=== PATIENT | female | born 1935 | race Caucasian/White ===

== ENCOUNTER 2018-05-04 22:14 | Inpatient (IN) | payer OTHER, MEDICARE ==
[~2018-05-04] VITALS: Ht 144.8 cm; Wt 68.9 kg
[~2018-05-04 22:14] MED LIST: ACET-1256 PO; ASPCH81X PO; ATOR-24 PO; ATV5 PO; CALC500C70 PO; CHOL100010 PO; CYM20 PO; ISOS60TA25 PO; LSX20 PO; METO50TA8 PO; NITR0.1S TL; OXYB5TAB PO; PANT40TA2 PO; POTA-639 PO
[2018-05-04] MEDS ORDERED: ALUMINUM/MAGNESIUM SUSP 30 ML UDC PO STA (22:45)
--- NOTE | 2018-05-04 22:46 | EMERGENCY ROOM VISIT NOTE ---
History Report prepared by Alexis: Jose Francisco Yoo Under the Supervision of: Dr. Moise Lepe First contact with patient: 22:33 Chief Complaint: CARDIAC ASSESSMENT Stated Complaint: ILLNESS, PAIN FROM ELBOW TO ARMPIT, SOB, NAUSEA History of Present Illness The patient is an 83 year old female who presents to the Emergency Room with complaints of pain in her left elbow and left shoulder that began at 0730, 3 hours ago. She states that the pain has resolved at this time. After the elbow and shoulder pain onset she became nauseous. The patient went to the restroom and had a diarrhea-like bowel movement. She denies any abdominal pain. She does have a history of coronary artery disease with stent placement. The last stent was placed in 2009. She did take Aspirin and nitroglycerin prior to arrival that resolved her symptoms. 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 Source of History: patient Onset: 3 hours ago Position: shoulder (left), elbow (left) Timing: resolved Modifying Factors (Relieving): other (Aspirin and nitr) Associated Symptoms: + nausea, + diarrhea Review of Systems See HPI for pertinent positives and negatives. A total of ten systems were reviewed and were otherwise negative. Past Medical & Surgical Medical Problems: (1) Anxiety (2) CAD (coronary artery disease) (3) CKD (chronic kidney disease), stage III (4) Dyslipidemia (5) GERD (gastroesophageal reflux disease) (6) History of iron deficiency anemia (7) History of non-toxic multinodal goiter (8) History of systolic heart failure (9) History of takotsubo cardiomyopathy (10) Hypertension (11) Osteoarthritis (12) Osteoporosis (13) Rotator cuff arthropathy Surgical Problems: (1) History of bladder suspension procedure (2) History of esophagogastroduodenoscopy (3) Hx of appendectomy (4) Hx of benign breast tumor removal (5) Hx of CABG (6) Hx of cataract surgery (7) Hx of laparoscopy Family History No significant family history Social History Smoking Status: Never Smoker Alcohol Use: none Marital Status: Housing Status: lives alone Occupation Status: retired Current/Historical Medications Scheduled Aspirin (Aspirin Chewable), 81 MG PO QAM Atorvastatin (Lipitor), 40 MG PO DAILY AFTERNOON Calcium Carbonate-Vitamin D (Oscal 500/200 D-3), 2 TABS PO DAILY Calcium/Vitamin D (Os-Eagle 500 Plus D), 1 TAB PO QAM Cholecalciferol (Vitamin D3), 2,000 UNITS PO DAILY Denosumab (Prolia), 60 MG SQ [id number] Duloxetine HCl (Cymbalta), 40 MG PO DAILY Furosemide (Lasix), 20 MG PO 3XWK Isosorbide Mononitrate Ext Rel (Imdur Ext Rel), 60 MG PO DAILY Metoprolol Succinate (Metoprolol Succinate ER), 25 MG PO DAILY Pantoprazole (Pantoprazole Sodium), 40 MG PO AMHS Scheduled PRN Acetaminophen (Tylenol), 500-1,000 MG PO QID PRN for Pain Nitroglycerin (Nitroglycerin Lingual), 1 DOSE TL DAILY PRN for Chest Pain Allergies Coded Allergies: Adhesives (Verified Allergy, Unknown, RED, CANT TOLERATE PAPER TAPE, 07/20) Nitroglycerin (Verified Allergy, Unknown, NITRO PATCH, ITHCY, 07/20/16) Physical Exam Vital Signs Date Time Temp Pulse Resp B/P (MAP) Pulse Ox O2 Delivery O2 Flow Rate FiO2 05/04/18 23:58 60 18 141/76 97 Room Air 05/04/18 23:24 57 05/04/18 22:57 94 Room Air 05/04/18 22:57 94 Room Air 05/04/18 22:40 94 Room Air 05/04/18 22:30 37.0 58 15 150/86 95 Room Air Physical Exam GENERAL: Awake, alert, well-appearing, in no distress HENT: Normocephalic, atraumatic. Oropharynx unremarkable. EYES: Normal conjunctiva. Sclera non-icteric. NECK: Supple. No nuchal rigidity. RESPIRATORY: Clear to auscultation. No wheezes. Normal respiratory effort. CARDIAC: Normal rate. Normal rhythm. Extremities warm and well perfused. GI: Soft, non-distended. No tenderness to palpation. No rebound or guarding. No masses. RECTAL: Deferred. MUSCULOSKELETAL: Atraumatic. Chest examination reveals no tenderness. LOWER EXTREMITIES: Calves are equal size bilaterally and non-tender. No edema NEURO: Normal sensorium. No sensory or motor deficits noted. SKIN: Warm and dry. No rash or jaundice noted. Medical Decision & Procedures ER Provider Diagnostic Interpretation: Radiology results as stated below per my review: Chest x-ray. Findings: A chest x-ray was performed and revealed no pneumothorax, effusion, infiltrate, pulmonary edema, free air under the diaphragm, or wide mediastinum. Laboratory Results 05/04/18 21:55 Red Blood Count 4.02, Mean Corpuscular Volume 90.0, Mean Corpuscular Hemoglobin 29.6, Mean Corpuscular Hemoglobin Concent 32.9, Mean Platelet Volume 9.7, Neutrophils (%) (Auto) 67.7, Lymphocytes (%) (Auto) 23.9, Monocytes (%) (Auto) 5.9, Eosinophils (%) (Auto) 2.0, Basophils (%) (Auto) 0.4, Neutrophils # (Auto) 5.08, Lymphocytes # (Auto) 1.79, Monocytes # (Auto) 0.44, Eosinophils # (Auto) 0.15, Basophils # (Auto) 0.03 05/04/18 21:55 Test 05/04/18 21:55 White Blood Count 7.50 K/uL (4.8-10.8) Red Blood Count 4.02 M/uL (4.2-5.4) Hemoglobin 11.9 g/dL (12.0-16.0) Hematocrit 36.2 % (37-47) Mean Corpuscular Volume 90.0 fL (80-100) Mean Corpuscular Hemoglobin 29.6 pg (25-34) Mean Corpuscular Hemoglobin Concent 32.9 g/dl (32-36) Platelet Count 219 K/uL (130-400) Mean Platelet Volume 9.7 fL (7.4-10.4) Neutrophils (%) (Auto) 67.7 % Lymphocytes (%) (Auto) 23.9 % Monocytes (%) (Auto) 5.9 % Eosinophils (%) (Auto) 2.0 % Basophils (%) (Auto) 0.4 % Neutrophils # (Auto) 5.08 K/uL (1.4-6.5) Lymphocytes # (Auto) 1.79 K/uL (1.2-3.4) Monocytes # (Auto) 0.44 K/uL (0.11-0.59) Eosinophils # (Auto) 0.15 K/uL (0-0.5) Basophils # (Auto) 0.03 K/uL (0-0.2) RDW Standard Deviation 42.0 fL (36.4-46.3) RDW Coefficient of Variation 12.8 % (11.5-14.5) Immature Granulocyte % (Auto) 0.1 % Immature Granulocyte # (Auto) 0.01 K/uL (0.00-0.02) Prothrombin Time 9.6 SECONDS (9.0-12.0) Prothromb Time International Ratio 0.9 (0.9-1.1) Activated Partial Thromboplast Time 24.8 SECONDS (21.0-31.0) Partial Thromboplastin Ratio 1.0 Anion Gap 8.0 mmol/L (3-11) Est Creatinine Clear Calc Drug Dose 31.3 ml/min Estimated GFR () 54.0 Estimated GFR (Non- 46.6 BUN/Creatinine Ratio 22.9 (10-20) Calcium Level 9.0 mg/dl (8.5-10.1) Total Bilirubin 0.3 mg/dl (0.2-1) Direct Bilirubin 0.1 mg/dl (0-0.2) Aspartate Amino Transf (AST/SGOT) 20 U/L (15-37) Alanine Aminotransferase (ALT/SGPT) 18 U/L (12-78) Alkaline Phosphatase 89 U/L (45-117) Troponin I < 0.015 ng/ml (0-0.045) Total Protein 7.4 gm/dl (6.4-8.2) Albumin 3.7 gm/dl (3.4-5.0) Lipase 206 U/L (73-393) Laboratory results reviewed by me Medications Administered Medications (Trade) Dose Ordered Sig/Emerson Route Start Time Stop Time Status Last Admin Dose Admin Al Hydroxide/Mg Hydroxide (Maalox Susp) 30 ml NOW STAT PO 05/04/18 22:45 05/04/18 22:46 DC 05/04/18 23:10 30 ML Famotidine (Pepcid 20mg Iv Push) 20 mg ONE STAT IV 05/05/18 00:16 05/05/18 00:17 DC 05/05/18 00:26 20 MG Al Hydroxide/Mg Hydroxide (Maalox Susp) 15 ml NOW STAT PO 05/05/18 00:16 05/05/18 00:17 DC 05/05/18 00:26 15 ML ECG Per My Interpretation Indication: back/shoulder pain Rate (beats per minute): 60 Rhythm: sinus rhythm Findings: 1st degree AV block, PVC (occassionaly), other (No ADEBAYO, ) Comparison ECG Date: 07/21/2016 Change: no significant change ED Course 2241: The patient was evaluated in room C3. A complete history and physical exam was performed. 2244: Ordered Maalox Susp 30 mL PO. 2341: I discussed the case with Dr. Jeanette Hale Hospitalist. He will evaluate the patient for further treatment/admission. Patient aware of plan of care. 2359: Patient requesting additional Maalox and given Maalox and Pepcid. States she is intermittently having some shooting pain in her left arm and chest but again not currently during my reevaluation. Medical Decision Differential diagnosis: Etiologies such as cardiac ischemia, aortic dissection, pulmonary embolism, pneumonia, pneumothorax, musculoskeletal, infections, pericarditis, myocarditis , esophageal rupture, gastrointestinal, as well as others were entertained. Patient presents complaining of left-sided arm pain similar to prior cardiac pain she has experienced in the past with extensive cardiac history earlier this evening. Had an episode of abdominal discomfort and diarrhea as well. Abdomen is benign.Took additional aspirin and nitroglycerin which improved the pain. She is now pain-free. Denies shortness of breath or chest pain at this time. No trauma. No arm pain at this time. was recently evaluated by her primary doctor and cardiology who increased her isosorbide due to concerns about angina. Doubt PE or dissection. Concern regarding this increased resting angina. Already received aspirin today. Given Maalox and Pepcid given some GI discomfort from this and has a history of GI disturbances that may be related. Multiple prior cardiac stents and operations. At this time cardiac EKG and troponin are negative. She is continued to have some intermittent stuttering symptoms of left sided axillary and arm pain. Given the intermittent nature I did not give additional nitroglycerin. There is also a trace left effusion notable on the x-ray without gross evidence of pneumonia, pneumothorax, or pulmonary edema. Unsure of the etiology of this. I feel that admission is warranted for serial troponins and further cardiac workup. Medication Reconcilliation Current Medication List: was personally reviewed by me Blood Pressure Screening Patient's blood pressure: Elevated blood pressure Referred to Hospitalist Consults Time Called: [phone] Consulting Physician: Dr. Jeanette Hale Hospitalist Returned Call: [phone] I discussed the case with Dr. Jeanette Hale Hospitaljosh. He will evaluate the patient for further treatment. Impression Primary Impression: Acute angina Additional Impression: Chest pain Scribe Attestation The scribe's documentation has been prepared under my direction and personally reviewed by me in its entirety. I confirm that the note above accurately reflects all work, treatment, procedures, and medical decision making performed by me. Departure Information Dispostion Being Evaluated By Hospitalist Referrals Camacho Sauer (PCP) Patient Instructions My [facility] Problem Qualifiers Additional Impression: Chest pain Chest pain type: unspecified Qualified Codes: R07.9 - Chest pain, unspecified
[2018-05-04 22:53] LABS: HEMATOCRIT 36.2 % (37-47); HEMOGLOBIN 11.9 g/dL (12.0-16.0); MEAN CORPUSCULAR HEMOGLOBIN 29.6 pg (25-34); MEAN CORPUSCULAR HGB CONC 32.9 g/dl (32-36); MEAN PLATELET VOLUME 9.7 fL (7.4-10.4); PLATELET COUNT 219 K/uL (130-400); RED CELL DISTRIBUTION WIDTH CV 12.8 % (11.5-14.5)
[2018-05-04 23:05] LABS: INR 0.9 (0.9-1.1); PTT PATIENT 24.8 SECONDS (21.0-31.0)
[2018-05-04 23:16] LABS: ALBUMIN 3.7 gm/dl (3.4-5.0); ALKALINE PHOSPHATASE 89 U/L (45-117); ALT/SGPT 18 U/L (12-78); AST/SGOT 20 U/L (15-37); BLOOD UREA NITROGEN 25 mg/dl (7-18); CARBON DIOXIDE 26 mmol/L (21-32); CREATININE 1.09 mg/dl (0.60-1.20); GLUCOSE 106 mg/dl (70-99); LIPASE 206 U/L (73-393); POTASSIUM 3.8 mmol/L (3.5-5.1); SODIUM 141 mmol/L (136-145); TOTAL PROTEIN 7.4 gm/dl (6.4-8.2)
[2018-05-04 23:18] LABS: BASO % 0.4 %; BASO ABS # 0.03 K/uL (0-0.2); EOS ABS # 0.15 K/uL (0-0.5); IG# 0.01 K/uL (0.00-0.02); LYMPH % 23.9 %; LYMPH ABS # 1.79 K/uL (1.2-3.4); MONO % 5.9 %; MONO ABS # 0.44 K/uL (0.11-0.59); NEUT % 67.7 %; NEUT ABS # 5.08 K/uL (1.4-6.5)
[2018-05-04] MEDS ORDERED: TPRSR/50 PO (23:52)
[2018-05-04] MEDS ORDERED: FURO-85 PO (23:54)
[2018-05-04] MEDS ORDERED: DULO-24 PO (23:57)
[2018-05-05] MEDS ORDERED: CHOL20007 PO
[2018-05-05] MEDS ORDERED: ALUMINUM/MAGNESIUM SUSP 30 ML UDC PO STA (00:16)
[2018-05-05] MEDS ORDERED: FAMOTIDINE 20MG/5ML IV PUSH IV STA (00:16)
[2018-05-05] MEDS ORDERED: CALC200T PO (00:17)
[2018-05-05] MEDS ORDERED: DENO60SO SQ (00:20)
[2018-05-05] MEDS ORDERED: LORAZEPAM 0.5 MG TAB PO PRN (01:00)
[2018-05-05] MEDS ORDERED: MoRPHine SULFATE 2 MG/ML CARP IV PRN (01:00)
[2018-05-05] MEDS ORDERED: ACETAMINOPHEN 500 MG TAB PO PRN (01:00)
[2018-05-05] MEDS ORDERED: POLYETHYLENE (MIRALAX) 17 GM PACK PO PRN (01:00)
[2018-05-05] MEDS ORDERED: NITROGLYCERIN 0.4 MG SL PER TAB CHARGE SL PRN (01:00)
[2018-05-05] MEDS ORDERED: ALUMINUM/MAGNESIUM/SIMETH (MAALOX MAX) 30 ML UDC PO PRN (01:00)
[2018-05-05] MEDS ORDERED: LORA-741 PO (01:00)
[2018-05-05] MEDS ORDERED: ACETAMINOPHEN 325 MG TAB PO PRN (01:00)
[2018-05-05] MEDS ORDERED: NITROGLYCERIN SL SPR 4.9 GM BTL SL PRN (01:00)
[2018-05-05] MEDS ORDERED: ISOS60TA25 PO (01:00)
[2018-05-05] MEDS ORDERED: ONDANSETRON INJ 2 MG/ML 2 ML VIAL IV PRN (01:00)
[2018-05-05 01:50] VITALS: BP 150/71; PULSE 54; TEMP 36.7; O2SAT 94; Ht 144.8 cm; Wt 68.9 kg
--- NOTE | 2018-05-05 02:20 | HISTORY & PHYSICAL EXAMINATION ---
DATE OF ADMISSION: 05/04/2018 CHIEF COMPLAINT: Left arm pain. HISTORY OF PRESENT ILLNESS: [age] female with past medical history significant for CAD, status post CABG, hypertension, osteoarthritis, chronic kidney disease, general anxiety, history of nontoxic multinodular goiter, hyperlipidemia, history of esophageal spasm, presents with ongoing left arm pain radiating to the armpit, going on for some time. She saw cardiology on April 26, 2018 and at that time, Imdur was increased from 60-120 mg and plan was to reassessed in about a month. The patient states that increasing dose of Imdur helped for a week then again she started having pain in the left arm, the same pain, but she used to have night sweats before. The night sweats has been improved since the tablet dose was increased, but today she has episode of diarrhea and pain was about 8/10 in severity, but right now that pain is gone. The pain comes and goes on its own. She has some shortness of breath on exertion. Denies any headache. No blurred visions. No earache, no runny nose, no sore throat or difficulty swallowing. have occasional dry cough. No fever, no chills, no nausea, no abdominal pain. Normal bowel and bladder movements. Appetite is okay. No swelling in the legs. Currently resting comfortably and hemodynamically stable. ALLERGIES: ADHESIVES AND NITROGLYCERIN. PAST MEDICAL HISTORY: As mentioned above. PAST SURGICAL HISTORY: CABG, cardiac catheterization, status post stents, EGD, cataract surgeries and fibroids removed and bilateral breast surgery, bilateral vaginal prolapse surgery, bladder suspension surgery, laparoscopy for infertility. MEDICATIONS: Currently patient is on Imdur ER 120 mg p.o. daily, Protonix 40 mg p.o. b.i.d., Lipitor 40 mg p.o. daily, nitroglycerine 0.4mg spray sublingual p.r.n., duloxetine 40 mg p.o. daily, Lasix 20 mg on Wednesday, Wednesday and Wednesday, Toprol-XL 25 mg p.o. daily, vitamin D 1000 units p.o. daily, Ativan 0.5 mg p.o. b.i.d. p.r.n., Tylenol extra strength as needed, aspirin 81 mg p.o. daily, Os-Eagle 500+200 two tablets daily. FAMILY HISTORY: Significant for brother has AAA, father has arthritis, heart disorder and stroke. Mother had breast cancer. SOCIAL HISTORY: No smoking history. No alcohol history. No drug history. REVIEW OF SYMPTOMS: As per HPI. Rest of review of symptoms negative. PHYSICAL EXAMINATION: GENERAL: The patient is old and frail, not in distress. VITAL SIGNS: Temperature 37, pulse 60, respiratory rate 18, blood pressure 141/76, oxygen 97% room air. HEENT: No pallor, no icterus. Pupils equal, round, and react to light. NECK: No JVD, no neck masses, no carotid bruit. CARDIOVASCULAR: S1, S2 heard, regular rate and rhythm, no murmur, no gallop. RESPIRATORY SYSTEM: Clear to auscultation bilaterally. No wheezing, no crackles. ABDOMEN: Soft, bowel sounds present. Nontender. No distention. CENTRAL NERVOUS SYSTEM: Cranial nerves II-XII grossly intact. Nonfocal. EXTREMITIES: No edema, no erythema. LABORATORIES: WBC 7.5, hemoglobin 11.9, hematocrit 36.2, platelets 219. Sodium 141, potassium 3.8, chloride 107, bicarbonate 26, BUN 25, creatinine 1.09, serum glucose 106, calcium 9, total bilirubin 0.3, direct bilirubin 0.1, AST 20, ALT 18, alkaline phosphatase 89. Troponin I less than 0.015. Lipase 206. PT 9.6, INR was 0.9, APTT 24.8. Chest x-ray: No acute findings. EKG: Sinus rhythm with first degree AV block with PVC's at the rate of 60. q waves anterolaterally. No acute ST changes seen. ASSESSMENT AND PLAN: This is an 83-year-old female who presents with left arm pain. 1. Left arm pain, possible angina going on for for some time. Imdur was recently increased from 60-120 mg which helped for a week, but again her symptoms came back and comes on and off. Currently, EKG, no acute changes and the troponin is negative. We will admit to tele floor. Serial cardiac enzymes and on the repeat EKG. Cardiology contemplating cardiac cath if there is no improvement with increasing Imdur, which will be done at [facility] so we will consult cardiology for further recommendations. Monitor on tele floor. 2. History of coronary artery disease status post coronary artery bypass grafting, status post stents. Continue home medications of Imdur, aspirin, statin, and Toprol-XL. We will monitor. 3. Hyperlipidemia. Continue statin. 4. Depression. Continue Cymbalta. 5. Hypertension. Continue Toprol-XL and monitor the blood pressure. 6 chronic kidney disease stage III, creatinine is 1.09. Will follow the labs. 7. Deep venous thrombosis prophylaxis, sequential compression devices. 8. Disposition: Admit to tele floor. Await cardiology recommendations. Level 1 full code. MTDD
[2018-05-05 06:03] LABS: CKMB 1.7 ng/ml (0.5-3.6)
[2018-05-05 07:09] VITALS: BP 139/71; PULSE 60; TEMP 36.9; O2SAT 92
[2018-05-05] MEDS ORDERED: CHOLECALCIFEROL 1000 INTER.UNIT TAB PO SCH (09:00)
[2018-05-05] MEDS ORDERED: PANTOprazole SOD 40 MG TAB PO SCH (09:00)
[2018-05-05] MEDS ORDERED: DULOXETINE HCL 20 MG CAP PO SCH (09:00)
[2018-05-05] MEDS ORDERED: ASPIRIN 81 MG ECTAB PO SCH (09:00)
[2018-05-05] MEDS ORDERED: CALCIUM 600MG + VIT D 400 IU TAB PO SCH (09:00)
[2018-05-05] MEDS ORDERED: METOPROLOL SUCC 25MG EXT REL TAB PO SCH (09:00)
[2018-05-05] MEDS ORDERED: ISOSORBIDE MONONITRATE 60 MG TABCR PO SCH (09:00)
--- NOTE | 2018-05-05 09:03 | DIAGNOSTIC IMAGING REPORT ---
CHEST ONE VIEW PORTABLE HISTORY: 83 years-old Female CHEST PAIN acute atypical chest pain COMPARISON: Chest radiograph and CTA chest 07/20/2016 TECHNIQUE: Portable AP view of the chest FINDINGS: Prior median sternotomy. Cardiac silhouette is again enlarged. Surgical clips project over the left mediastinum. No pneumothorax, pleural effusion, lobar airspace consolidation or overt pulmonary edema. Linear subsegmental opacities about the lateral left midlung suggest atelectasis or scarring and are unchanged. There are degenerative changes of the shoulders and spine. Small hiatal hernia. IMPRESSION: No acute process. The above report was generated using voice recognition software. It may contain grammatical, syntax or spelling errors. Electronically signed by: Navneet Diaz M.D. 05/05/2018 6:34 AM Dictated Date/Time: 05/05/2018 6:33 AM
--- NOTE | 2018-05-05 09:29 | Cardiology Consultation ---
Cardiology Consultation Date of Consultation: May 05, 2018 History of Present Illness Patient is a 83 year old female seen in cardiology consultation per the request of Dr. Reid for the complaint of recurrent pain in her left arm just above her elbow. The patient is a long-standing history of coronary heart disease most recently has typically followed with Jet Maria PA-C of our practice however I had seen her on 04/26/18 as an acute visit at [facility]. That day she had presented to see general internal medicine and she described complaints of on and off again heavy perspiration at night and a waxing and waning left arm discomfort that have been present for a few weeks but was worse for the preceding few days. She described that the discomfort had been most significant at her recent birthday gathering as both the patient's daughter and the patient's birthdays were celebrated. The patient has had some degree of psychosocial stressors I am told by her daughter that the patient's sister recently and they attended a within the last few weeks. When I initially saw her last week. Her EKG had revealed sinus bradycardia with first-degree AV block with Q waves noted in the inferior leads unchanged compared to a prior 2016. Although she complained of waxing and waning left arm pain she looked remarkably comfortable. I recommended increasing her isosorbide mononitrate from 60 mg daily to 120 mg daily. For the last 10 days she felt that the medication had helped at first but yesterday her left arm pain returned and she also had an episode of nausea and diarrhea. She also received report that her chest x-ray performed at the time of her visit last week with general internal medicine revealed an abnormality in the right lung. Per review of the official radiology report, blunting of the right costophrenic angle along with mild interstitial prominence of the right lateral lower lung was present and felt to represent local infectious versus inflammatory state. This of course does not correlate with the patient's symptoms and she has no fever, no pleuritic pain, and no cough. Yesterday when she had the return of the discomfort this prompted her to come back to the emergency room overnight last night. EKG performed on arrival revealed detailed in no acute changes with a chronic inferior infarct pattern, and her troponin has been negative 2 thus far. The patient is comfortable in bed. Telemetry reveals stable sinus rhythm sinus bradycardia. Past Medical/Surgical History Problem List: Medical Problems: (1) Anxiety (2) CAD (coronary artery disease) (3) CKD (chronic kidney disease), stage III (4) Dyslipidemia (5) GERD (gastroesophageal reflux disease) (6) History of iron deficiency anemia (7) History of non-toxic multinodal goiter (8) History of systolic heart failure (9) History of takotsubo cardiomyopathy (10) Hypertension (11) Left arm pain (12) Osteoarthritis (13) Osteoporosis (14) Rotator cuff arthropathy Surgical Problems: (1) History of bladder suspension procedure (2) History of esophagogastroduodenoscopy (3) Hx of appendectomy (4) Hx of benign breast tumor removal (5) Hx of CABG (6) Hx of cataract surgery (7) Hx of laparoscopy History Past Medical History: 1. ASCVD status post PCI x3 in 2001, 3-vessel bypass surgery in 2002 with AMADO to LAD, SVG to PDA, vein graft to OM, and diagonal branch. 2. Catheterization in May 2010 in the setting of apical ballooning induced cardiogenic shock showed stable disease.~ 3. Worsening anginal symptoms led to abnormal lexiscan nuclear stress test in October 2011 and repeat cardiac catheterization at [facility] in [place] demonstrated severe [place] 3-vessel CAD with patent AMADO to LAD, SVG to PDA, SVG to diagonal branch jumping to posterolateral branch.~ 4. Last stress testing occurred in March 2015 at [facility], dobutamine stress testing negative for pharmacologically induced myocardial ischemia with resting echo demonstrating preserved left ventricular systolic function. 5. Hypertension 6. Dyslipidemia 7. GERD. History of esophagitis. History of large hiatal hernia with a few nery ulcers. Schatzki ring. Followed by GI. Past Surgical History: 1. CABG 3 as outlined above in 2002 2. Multiple cardiac catheterizations as outlined above including 2001, 2002, 2011 3. Bilateral cataract extractions 4. Remote appendectomy 5. Multiple EGD studies most recent of which took place in 2016 with findings of Schatzki's ring Social History: The patient is a lifelong non-smoker. He is and lives independently with close family support. Her daughter, David is a nurse at [employer]. Family History: Father with apparent history of heart disease, details unknown as well as stroke. Brother with history of heart disease and myocardial infarction at the age of 70 as well as pacemaker. Review Of Systems 10 point review of systems reviewed and is negative with exception of that outlined above Allergies Coded Allergies: Adhesives (Verified Allergy, Unknown, RED, CANT TOLERATE PAPER TAPE, 07/20) Nitroglycerin (Verified Allergy, Unknown, NITRO PATCH, ITHCY, 07/20/16) Medications Reported Home Medications Medications Dose Route/Sig Max Daily Dose Days Date Category Dose Instructions Ativan (Lorazepam) 0.5 Mg Tab 0.5 Mg PO BID PRN 05/05/18 Rx Imdur Ext Rel (Isosorbide Mononitrate) 60 Mg Ertab 120 Mg PO DAILY 05/05/18 Rx Vitamin D3 (Cholecalciferol) 2,000 Unit Tab 2,000 Units PO DAILY 05/05/18 Reported Cymbalta (Duloxetine HCl) 20 Mg Cap 40 Mg PO DAILY 05/04/18 Reported Lasix (Furosemide) 20 Mg Tab 20 Mg PO 3XWK 05/04/18 Reported TAKE ONE TABLET EVERY WEDNESDAY/WEDNESDAY/WEDNESDAY. Metoprolol Succinate ER (Metoprolol Succinate) 50 Mg Tabcr 25 Mg PO DAILY 05/04/18 Reported 1/2 TABLET DOSE DAILY Pantoprazole Sodium (Pantoprazole) 40 Mg Tab 40 Mg PO AMHS 07/20/16 Reported Aspirin Chewable (Aspirin) 81 Mg Chew 81 Mg PO QAM 12/11/15 Reported [place] 500 Plus D (Calcium/Vitamin D) Tab 1 Tab PO QAM 12/11/15 Reported Nitroglycerin Lingual (Nitroglycerin) 0.4 Mg/Huslia Spr 1 Dose TL DAILY PRN 12/11/15 Reported Lipitor (Atorvastatin Calcium) 40 Mg Tab 40 Mg PO DAILY AFTERNOON 12/03/15 Reported Tylenol (Acetaminophen) 500 Mg Tab 500-1,000 Mg PO QID PRN 01/05/14 Reported Physical Exam Vital Signs (Last 8hrs): Last 8 Hrs Date Time Temp Pulse Resp B/P (MAP) Pulse Ox O2 Delivery O2 Flow Rate FiO2 05/05/18 07:09 36.9 60 18 139/71 (93) 92 Room Air 05/05/18 01:50 36.7 54 18 150/71 94 Room Air 05/05/18 01:24 56 18 123/56 98 Room Air General Appearance: Alert and Oriented x3. NAD. Head: Normocephalic Atraumatic. Eyes: PERRLA, EOMI, conjunctiva and sclera clear Neck: Supple. No carotid bruits noted. No JVD. No HJD. Respiratory: Breath sounds clear to auscultation bilaterally. No w/r/r. Cardiovascular: Reg rate and rhythm. S1 and S2 noted. No murmurs, rubs, gallops. PMI non displace. Abdomen: Normal bowel sounds, soft nontender. no abdominal bruits. Extremities: No edema, no clubbing or cyanosis. distal pulses 2/4 bilaterally. Neuro: No focal deficits. Psychiatric: Normal affect. Data Last 24 Hours Test 05/04/18 21:55 05/05/18 05:14 White Blood Count 7.50 K/uL Red Blood Count 4.02 M/uL Hemoglobin 11.9 g/dL Hematocrit 36.2 % Mean Corpuscular Volume 90.0 fL Mean Corpuscular Hemoglobin 29.6 pg Mean Corpuscular Hemoglobin Concent 32.9 g/dl Platelet Count 219 K/uL Mean Platelet Volume 9.7 fL Neutrophils (%) (Auto) 67.7 % Lymphocytes (%) (Auto) 23.9 % Monocytes (%) (Auto) 5.9 % Eosinophils (%) (Auto) 2.0 % Basophils (%) (Auto) 0.4 % Neutrophils # (Auto) 5.08 K/uL Lymphocytes # (Auto) 1.79 K/uL Monocytes # (Auto) 0.44 K/uL Eosinophils # (Auto) 0.15 K/uL Basophils # (Auto) 0.03 K/uL RDW Standard Deviation 42.0 fL RDW Coefficient of Variation 12.8 % Immature Granulocyte % (Auto) 0.1 % Immature Granulocyte # (Auto) 0.01 K/uL Prothrombin Time 9.6 SECONDS Prothromb Time International Ratio 0.9 Activated Partial Thromboplast Time 24.8 SECONDS Partial Thromboplastin Ratio 1.0 Sodium Level 141 mmol/L Potassium Level 3.8 mmol/L Chloride Level 107 mmol/L Carbon Dioxide Level 26 mmol/L Anion Gap 8.0 mmol/L Blood Urea Nitrogen 25 mg/dl Creatinine 1.09 mg/dl Est Creatinine Clear Calc Drug Dose 31.3 ml/min Estimated GFR () 54.0 Estimated GFR (Non- 46.6 BUN/Creatinine Ratio 22.9 Random Glucose 106 mg/dl Calcium Level 9.0 mg/dl Total Bilirubin 0.3 mg/dl Direct Bilirubin 0.1 mg/dl Aspartate Amino Transf (AST/SGOT) 20 U/L Alanine Aminotransferase (ALT/SGPT) 18 U/L Alkaline Phosphatase 89 U/L Troponin I < 0.015 ng/ml < 0.015 ng/ml Total Protein 7.4 gm/dl Albumin 3.7 gm/dl Lipase 206 U/L Total Creatine Kinase 76 U/L Creatine Kinase MB 1.7 ng/ml Creatine Kinase MB Ratio 2.2 EKG performed on arrival 05/04/18 at 2221 revealed sinus rhythm with first- degree AV block, and PVCs. Inferior infarction pattern noted with Q waves in leads III and aVF mild J-point elevation noted in lead aVF, unchanged compared to outpatient EKG performed 04/26/18 and again in 2017. Assessment & Plan Impression: 83-year-old female 1. Patient presents with recurrent waxing and waning left arm discomfort just proximal to her elbow. Symptoms have relieved at present without specific intervention. She is also previously complained of on and off again heavy perspiration at night which seems to have improved over the last 10 days compared to when she was seen as an outpatient on 04/26/18. 2. Remote myocardial infarction, 2001 with PCI at that time, followed by CABG times 12/2002, stable findings at time of cardiac catheterization performed for recurrent symptoms in 2011 Discussion/recommendations: Although the patient's recent outpatient chest x-ray raises the question for an inflammatory process at the right base, she does not have any clinical symptoms correlate with this. Her symptoms are somewhat atypical for angina. EKG is stable, and cardiac enzymes have been negative 2. The patient however is very concerned that her current symptoms mimic his symptoms that she felt for a month before her prior myocardial infarction many years ago. I discussed treatment options with her. Last week, her isosorbide mononitrate dose was increased from 60 mg to 120 mg, but her symptoms have reoccurred. We discussed the option of proceeding with stress testing for further risk stratification, however even if her stress test was normal, with recurrent symptoms, I do not think this would offer much reassurance to the patient, her family, or her providers. At this time, I recommend transfer to tertiary care center, [facility], for complex cardiac catheterization with need for high risk percutaneous coronary or bypass intervention if necessary. I think her catheterization is best performed at the tertiary center given the complex nature of her coronary anatomy as outlined above with bypass grafts that are 15 years old. The patient and her daughter, David were agreeable with this. Case was discussed with Dr. Castle manager front for clinical cardiology at [facility] who accepts the patient in transfer. We will transfer arrangements are being made, I am going to proceed with a resting echocardiogram for reassessment. If we cannot complete it before she leaves, this can likely be performed at [facility] if determined to be necessary.
[2018-05-05 10:04] VITALS: BP 139/71; PULSE 60; TEMP 36.9; O2SAT 92
--- NOTE | 2018-05-05 10:14 | Progress Note ---
Internal Med Progress Note Date of Service: May 05, 2018. Provider Documentation: SUBJECTIVE: Patient denies acute chest pain or acute arm pain. Patient breathing on room air. Denies shortness of breath at rest OBJECTIVE: Exam: General- no acute distress Eyes- EOMI Neck- trachea midline, no JVD Lungs- CTABL Heart- regular rate Abdomen- soft, nontender, positive bowel sounds Extremities- no edema Neuro- awake and alert ASSESSMENT & PLAN: This is an 83-year-old female who presents with left arm pain. - History of coronary artery disease status post coronary artery bypass grafting , status post stents -Left arm pain from angina vs ischemic coronary artery disease -initial negative troponin -Patient evaluated by [facility] cardiology service Dr. Olson and he recommended patient to be transferred to tertiary care center, [facility], for complex cardiac catheterization with need for high risk percutaneous coronary or bypass intervention if necessary. He discussed with Dr. Castle cost controller for clinical cardiology at [facility] [place] the patient in transfer. -on medications of Imdur, aspirin, statin, and Toprol-XL, statin. Depression history on Cymbalta. Vital Signs: Date Time Temp Pulse Resp B/P (MAP) Pulse Ox O2 Delivery O2 Flow Rate FiO2 05/05/18 10:04 36.9 60 18 92 Room Air 05/05/18 08:00 Room Air 05/05/18 07:09 36.9 60 18 139/71 (93) 92 Room Air 05/05/18 01:50 36.7 54 18 150/71 94 Room Air 05/05/18 01:24 56 18 123/56 98 Room Air 05/04/18 23:58 60 18 141/76 97 Room Air 05/04/18 23:24 57 05/04/18 22:57 94 Room Air 05/04/18 22:57 94 Room Air 05/04/18 22:40 94 Room Air 05/04/18 22:30 37.0 58 15 150/86 95 Room Air Lab Results: Results Past 24 Hours Test 05/04/18 21:55 05/05/18 05:14 Range/Units White Blood Count 7.50 4.8-10.8 K/uL Red Blood Count 4.02 4.2-5.4 M/uL Hemoglobin 11.9 12.0-16.0 g/dL Hematocrit 36.2 37-47 % Mean Corpuscular Volume 90.0 80-100 fL Mean Corpuscular Hemoglobin 29.6 25-34 pg Mean Corpuscular Hemoglobin Concent 32.9 32-36 g/dl Platelet Count 219 130-400 K/uL Mean Platelet Volume 9.7 7.4-10.4 fL Neutrophils (%) (Auto) 67.7 % Lymphocytes (%) (Auto) 23.9 % Monocytes (%) (Auto) 5.9 % Eosinophils (%) (Auto) 2.0 % Basophils (%) (Auto) 0.4 % Neutrophils # (Auto) 5.08 1.4-6.5 K/uL Lymphocytes # (Auto) 1.79 1.2-3.4 K/uL Monocytes # (Auto) 0.44 0.11-0.59 K/uL Eosinophils # (Auto) 0.15 0-0.5 K/uL Basophils # (Auto) 0.03 0-0.2 K/uL RDW Standard Deviation 42.0 36.4-46.3 fL RDW Coefficient of Variation 12.8 11.5-14.5 % Immature Granulocyte % (Auto) 0.1 % Immature Granulocyte # (Auto) 0.01 0.00-0.02 K/uL Prothrombin Time 9.6 9.0-12.0 SECONDS Prothromb Time International Ratio 0.9 0.9-1.1 Activated Partial Thromboplast Time 24.8 21.0-31.0 SECONDS Partial Thromboplastin Ratio 1.0 Sodium Level 141 136-145 mmol/L Potassium Level 3.8 3.5-5.1 mmol/L Chloride Level 107 98-107 mmol/L Carbon Dioxide Level 26 21-32 mmol/L Anion Gap 8.0 3-11 mmol/L Blood Urea Nitrogen 25 7-18 mg/dl Creatinine 1.09 0.60-1.20 mg/dl Est Creatinine Clear Calc Drug Dose 31.3 ml/min Estimated GFR () 54.0 Estimated GFR (Non- 46.6 BUN/Creatinine Ratio 22.9 10-20 Random Glucose 106 70-99 mg/dl Calcium Level 9.0 8.5-10.1 mg/dl Total Bilirubin 0.3 0.2-1 mg/dl Direct Bilirubin 0.1 0-0.2 mg/dl Aspartate Amino Transf (AST/SGOT) 20 15-37 U/L Alanine Aminotransferase (ALT/SGPT) 18 12-78 U/L Alkaline Phosphatase 89 45-117 U/L Troponin I < 0.015 < 0.015 0-0.045 ng/ml Total Protein 7.4 6.4-8.2 gm/dl Albumin 3.7 3.4-5.0 gm/dl Lipase 206 73-393 U/L Total Creatine Kinase 76 26-192 U/L Creatine Kinase MB 1.7 0.5-3.6 ng/ml Creatine Kinase MB Ratio 2.2 0-3.0
--- NOTE | 2018-05-05 10:20 | Discharge Instructions ---
Discharge Instructions Date of Service May 05, 2018. Admission Reason for Admission: Left Arm Pain Discharge Discharge Diagnosis / Problem: Left arm pain from angina vs ischemic coronary artery disease Discharge Goals Goal(s): Improve disease control Activity Recommendations Activity Limitations: as noted below . Instructions / Follow-Up Instructions / Follow-Up This is an 83-year-old female who presents with left arm pain. - History of coronary artery disease status post coronary artery bypass grafting , status post stents -Left arm pain from angina vs ischemic coronary artery disease -initial negative troponin -Patient evaluated by [facility] cardiology service Dr. Olson and he recommended patient to be transferred to tertiary care center, [facility], for complex cardiac catheterization with need for high risk percutaneous coronary or bypass intervention if necessary. He discussed with Dr. Castle insemination worker for clinical cardiology at [facility] who accepts the patient in transfer. -on medications of Imdur, aspirin, statin, and Toprol-XL, statin. Depression history on Cymbalta. Current Hospital Diet Patient's current hospital diet: Regular Diet Discharge Diet Recommended Diet: Regular Diet Pending Studies Studies pending at discharge: no Laboratory Results 05/04/18 21:55 Red Blood Count 4.02, Mean Corpuscular Volume 90.0, Mean Corpuscular Hemoglobin 29.6, Mean Corpuscular Hemoglobin Concent 32.9, Mean Platelet Volume 9.7, Neutrophils (%) (Auto) 67.7, Lymphocytes (%) (Auto) 23.9, Monocytes (%) (Auto) 5.9, Eosinophils (%) (Auto) 2.0, Basophils (%) (Auto) 0.4, Neutrophils # (Auto) 5.08, Lymphocytes # (Auto) 1.79, Monocytes # (Auto) 0.44, Eosinophils # (Auto) 0.15, Basophils # (Auto) 0.03 05/04/18 21:55 Test 05/04/18 21:55 05/05/18 05:14 White Blood Count 7.50 K/uL (4.8-10.8) Red Blood Count 4.02 M/uL (4.2-5.4) Hemoglobin 11.9 g/dL (12.0-16.0) Hematocrit 36.2 % (37-47) Mean Corpuscular Volume 90.0 fL (80-100) Mean Corpuscular Hemoglobin 29.6 pg (25-34) Mean Corpuscular Hemoglobin Concent 32.9 g/dl (32-36) Platelet Count 219 K/uL (130-400) Mean Platelet Volume 9.7 fL (7.4-10.4) Neutrophils (%) (Auto) 67.7 % Lymphocytes (%) (Auto) 23.9 % Monocytes (%) (Auto) 5.9 % Eosinophils (%) (Auto) 2.0 % Basophils (%) (Auto) 0.4 % Neutrophils # (Auto) 5.08 K/uL (1.4-6.5) Lymphocytes # (Auto) 1.79 K/uL (1.2-3.4) Monocytes # (Auto) 0.44 K/uL (0.11-0.59) Eosinophils # (Auto) 0.15 K/uL (0-0.5) Basophils # (Auto) 0.03 K/uL (0-0.2) RDW Standard Deviation 42.0 fL (36.4-46.3) RDW Coefficient of Variation 12.8 % (11.5-14.5) Immature Granulocyte % (Auto) 0.1 % Immature Granulocyte # (Auto) 0.01 K/uL (0.00-0.02) Prothrombin Time 9.6 SECONDS (9.0-12.0) Prothromb Time International Ratio 0.9 (0.9-1.1) Activated Partial Thromboplast Time 24.8 SECONDS (21.0-31.0) Partial Thromboplastin Ratio 1.0 Anion Gap 8.0 mmol/L (3-11) Est Creatinine Clear Calc Drug Dose 31.3 ml/min Estimated GFR () 54.0 Estimated GFR (Non- 46.6 BUN/Creatinine Ratio 22.9 (10-20) Calcium Level 9.0 mg/dl (8.5-10.1) Total Bilirubin 0.3 mg/dl (0.2-1) Direct Bilirubin 0.1 mg/dl (0-0.2) Aspartate Amino Transf (AST/SGOT) 20 U/L (15-37) Alanine Aminotransferase (ALT/SGPT) 18 U/L (12-78) Alkaline Phosphatase 89 U/L (45-117) Total Protein 7.4 gm/dl (6.4-8.2) Albumin 3.7 gm/dl (3.4-5.0) Lipase 206 U/L (73-393) Total Creatine Kinase 76 U/L (26-192) Creatine Kinase MB 1.7 ng/ml (0.5-3.6) Creatine Kinase MB Ratio 2.2 (0-3.0) Troponin I < 0.015 ng/ml (0-0.045) Medical Emergencies . Who to Call and When: Medical Emergencies: If at any time you feel your situation is an emergency, please call 911 immediately. . Non-Emergent Contact Non-Emergency issues call your: Primary Care Provider, Financial Service Professional Call Non-Emergent contact if: you have any medication questions . . "Provider Documentation" section prepared by Alcon Sahu. .
--- NOTE | 2018-05-05 10:22 | Discharge Summary ---
Discharge Summary Date of Service May 05, 2018. Discharge Summary Admission Date: May 05, 2018 at 00:59 Discharge Date: May 05, 2018 Discharge Disposition: Acute care facility ([facility] in [place]) Principal Diagnosis: Left arm pain from angina vs ischemic coronary artery disease Consultations: Cardiology. Dr. Olson: "Impression: 83-year-old female 1. Patient presents with recurrent waxing and waning left arm discomfort just proximal to her elbow. Symptoms have relieved at present without specific intervention. She is also previously complained of on and off again heavy perspiration at night which seems to have improved over the last 10 days compared to when she was seen as an outpatient on 04/26/18. 2. Remote myocardial infarction, 2001 with PCI at that time, followed by CABG times 12/2002, stable findings at time of cardiac catheterization performed for recurrent symptoms in 2011 Discussion/recommendations: Although the patient's recent outpatient chest x-ray raises the question for an inflammatory process at the right base, she does not have any clinical symptoms correlate with this. Her symptoms are somewhat atypical for angina. EKG is stable, and cardiac enzymes have been negative 2. The patient however is very concerned that her current symptoms mimic his symptoms that she felt for a month before her prior myocardial infarction many years ago. I discussed treatment options with her. Last week, her isosorbide mononitrate dose was increased from 60 mg to 120 mg, but her symptoms have reoccurred. We discussed the option of proceeding with stress testing for further risk stratification, however even if her stress test was normal, with recurrent symptoms, I do not think this would offer much reassurance to the patient, her family, or her providers. At this time, I recommend transfer to tertiary care center, [facility], for complex cardiac catheterization with need for high risk percutaneous coronary or bypass intervention if necessary. I think her catheterization is best performed at the tertiary center given the complex nature of her coronary anatomy as outlined above with bypass grafts that are 15 years old. The patient and her daughter, David were agreeable with this. Case was discussed with Dr. Castle buttonhole machine operator for clinical cardiology at [facility] who accepts the patient in transfer. We will transfer arrangements are being made, I am going to proceed with a resting echocardiogram for reassessment. If we cannot complete it before she leaves, this can likely be performed at [facility] if determined to be necessary." Medication Reconciliation Continued Medications: Acetaminophen (Tylenol) 500 Mg Tab 500-1000 MG PO QID PRN for Pain, TAB Aspirin (Aspirin Chewable) 81 Mg Chew 81 MG PO QAM Atorvastatin (Lipitor) 40 Mg Tab 40 MG PO DAILY AFTERNOON, TAB Calcium/Vitamin D (Os-Eagle 500 Plus D) Tab 1 TAB PO QAM, TAB Cholecalciferol (Vitamin D3) 2,000 Unit Tab 2000 UNITS PO DAILY, TAB Duloxetine HCl (Cymbalta) 20 Mg Cap 40 MG PO DAILY, CAP Furosemide (Lasix) 20 Mg Tab 20 MG PO 3XWK, TAB TAKE ONE TABLET EVERY WEDNESDAY/WEDNESDAY/WEDNESDAY. Isosorbide Mononitrate Ext Rel (Imdur Ext Rel) 60 Mg Ertab 120 MG PO DAILY, #30 Lorazepam (Ativan) 0.5 Mg Tab 0.5 MG PO BID PRN for Anxiety/Insomnia, #30 TAB Metoprolol Succinate (Metoprolol Succinate ER) 50 Mg Tabcr 25 MG PO DAILY 1/2 TABLET DOSE DAILY Nitroglycerin (Nitroglycerin Lingual) 0.4 Mg/[place] Spr 1 DOSE TL DAILY PRN for Chest Pain Pantoprazole (Pantoprazole Sodium) 40 Mg Tab 40 MG PO [facility] Admission Information HPI (per Admitting provider): CHIEF COMPLAINT: Left arm pain. HISTORY OF PRESENT ILLNESS: [age]vy[age]ma[age]old female with past medical history significant for CAD, status post CABG, hypertension, osteoarthritis, chronic kidney disease, general anxiety, history of nontoxic multinodular goiter, hyperlipidemia, history of esophageal spasm, presents with ongoing left arm pain radiating to the armpit, going on for some time. She saw cardiology on April 26, 2018 and at that time, Imdur was increased from 60-120 mg and plan was to reassessed in about a month. The patient states that increasing dose of Imdur helped for a week then again she started having pain in the left arm, the same pain, but she used to have night sweats before. The night sweats has been improved since the tablet dose was increased, but today she has episode of diarrhea and pain was about 8/10 in severity, but right now that pain is gone. The pain comes and goes on its own. She has some shortness of breath on exertion. Denies any headache. No blurred visions. No earache, no runny nose, no sore throat or difficulty swallowing. have occasional dry cough. No fever, no chills, no nausea, no abdominal pain. Normal bowel and bladder movements. Appetite is okay. No swelling in the legs. Currently resting comfortably and hemodynamically stable. ALLERGIES: ADHESIVES AND NITROGLYCERIN. PAST MEDICAL HISTORY: As mentioned above. PAST SURGICAL HISTORY: CABG, cardiac catheterization, status post stents, EGD, cataract surgeries and fibroids removed and bilateral breast surgery, bilateral vaginal prolapse surgery, bladder suspension surgery, laparoscopy for infertility. MEDICATIONS: Currently patient is on Imdur ER 120 mg p.o. daily, Protonix 40 mg p.o. b.i.d., Lipitor 40 mg p.o. daily, nitroglycerine 0.4mg spray sublingual p.r.n., duloxetine 40 mg p.o. daily, Lasix 20 mg on Wednesday, Wednesday and Wednesday, Toprol-XL 25 mg p.o. daily, vitamin D 1000 units p.o. daily, Ativan 0.5 mg p.o. b.i.d. p.r.n., Tylenol extra strength as needed, aspirin 81 mg p.o. daily, Os-Eagle 500+200 two tablets daily. FAMILY HISTORY: Significant for brother has AAA, father has arthritis, heart disorder and stroke. Mother had breast cancer. SOCIAL HISTORY: No smoking history. No alcohol history. No drug history. REVIEW OF SYMPTOMS: As per HPI. Rest of review of symptoms negative. Physical Exam (per Admitting): PHYSICAL EXAMINATION: GENERAL: The patient is old and frail, not in distress. VITAL SIGNS: Temperature 37, pulse 60, respiratory rate 18, blood pressure 141/76, oxygen 97% room air. HEENT: No pallor, no icterus. Pupils equal, round, and react to light. NECK: No JVD, no neck masses, no carotid bruit. CARDIOVASCULAR: S1, S2 heard, regular rate and rhythm, no murmur, no gallop. RESPIRATORY SYSTEM: Clear to auscultation bilaterally. No wheezing, no crackles. ABDOMEN: Soft, bowel sounds present. Nontender. No distention. CENTRAL NERVOUS SYSTEM: Cranial nerves II-XII grossly intact. Nonfocal. EXTREMITIES: No edema, no erythema. Hospital Course This is an 83-year-old female who presents with left arm pain. - History of coronary artery disease status post coronary artery bypass grafting , status post stents -Left arm pain from angina vs ischemic coronary artery disease -initial negative troponin -Patient evaluated by [facility] cardiology service Dr. Olson and he recommended patient to be transferred to tertiary care center, [facility], for complex cardiac catheterization with need for high risk percutaneous coronary or bypass intervention if necessary. He discussed with Dr. Castle buttonhole machine operator for clinical cardiology at [facility] who accepts the patient in transfer. -on medications of Imdur, aspirin, statin, and Toprol-XL, statin. Depression history on Cymbalta. Total time spent on discharge = This includes examination of the patient, discharge planning, medication reconciliation, and communication with other providers. Discharge Instructions see above
[2018-05-05] MEDS ORDERED: ATORVASTATIN 40 MG TAB PO SCH (11:00)
[2018-05-06] MEDS ORDERED: FUROSEMIDE 20 MG TAB PO SCH (09:00)
--- NOTE | 2018-05-10 14:58 | ECHOCARDIOGRAM REPORT ---
*NOTICE TO RECEIVING DEMOCRAT AGENCY This information is strictly Confidential and protected under [place] law. [place] law prohibits you from making any further disclosure of this information unless further disclosure is expressly permitted by the written consent of the person to whom it pertains or is authorized by law. A general authorization for the release of medical or other information is not sufficient for this purpose. Hospital accepts no responsibility if the information is made available to any other person, INCLUDING THE PATIENT. Interpretation Summary * Name: RONNA BIRD Study Date: 05/05/2018 09:18 AM BP: 139/71 mmHg * Patient Location: C.2T\S\S238\S\2 HR: 57 * : 1935 (M/d/yyyy) Gender: Female Height: 57 in * Age: 83 yrs Ethnicity: CA Weight: 151 lb * Ordering Physician: Pedro Olson * Referring Physician: Self, Referred * Performed By: Georgina Singer RCS * * Reason For Study: LEFT ARM PAIN / POSSIBLE ANGINAL EQUIVALENT * BSA: 1.6 m2 * -- Conclusions -- * The study is technically adequate for the referral indication. * Sinus bradycardia was present during the echocardiogram. * There is mild concentric left ventricular hypertrophy. * The left ventricular wall motion is normal. * No regional wall motion abnormalities noted. * Left ventricular ejection Fraction = 55-60%. * The right ventricle was not well-visualized, but appears to be mildly dilated on the parasternal short axis views, with normal right ventricular systolic function. * There is mild tricuspid regurgitation. * Doppler findings do not suggest pulmonary hypertension. * There is trace mitral regurgitation. * Grade I diastolic dysfunction, (abnormal relaxation pattern). Procedure Details * A complete two-dimensional transthoracic echocardiogram was performed (2D, M-mode, Doppler and color flow Doppler). Left Ventricle * The left ventricle is normal in size. * There is mild concentric left ventricular hypertrophy. * Left ventricular systolic function is normal. * Ejection Fraction = 55-60%. * The left ventricular wall motion is normal. * No regional wall motion abnormalities noted. Right Ventricle * The right ventricle was not well-visualized, but appears to be mildly dilated on the parasternal short axis views, with normal right ventricular systolic function. Atria * The left atrial size is normal. * Right atrial size is normal. * There is no evidence of atrial septal defect, but resolution does not allow assessment for a patent foramen ovale. Mitral Valve * The mitral valve is normal. * There is no mitral valve stenosis. * There is trace mitral regurgitation. Tricuspid Valve * The tricuspid valve is normal. * There is no tricuspid stenosis. * There is mild tricuspid regurgitation. * Doppler findings do not suggest pulmonary hypertension. Aortic Valve * The aortic valve is trileaflet. * There is mild to moderate focal sclerosis of the right coronary cusp of the aortic valve with resultant reduced excursion of this cusp. The left coronary cusp and noncoronary cusp excursion is normal. * Aortic stenosis is absent. * There is no significant aortic regurgitation. Pulmonic Valve * The pulmonary valve is not well seen, but the Doppler examination is normal without significant regurgitation or stenosis. Great Vessels * The aortic root and proximal ascending aorta are normal sized. Pericardium/Pleural * There is no pericardial effusion. Great Vessels * Normal inferior vena cava diameter and respiratory variation suggests normal central venous pressure. Left Ventricular Diastolic Function * Grade I diastolic dysfunction, (abnormal relaxation pattern). MMode 2D Measurements and Calculations IVSd 1.3 cm IVSs 1.5 cm LVIDd 3.7 cm LVIDs 2.7 cm LVPWd 1.2 cm LVPWs 1.6 cm IVS/LVPW 1.0 FS 26.1 % EDV(Teich) 57.1 ml ESV(Teich) 27.4 ml EF(Teich) 52.1 % EDV(cubed) 49.6 ml ESV(cubed) 20.0 ml EF(cubed) 59.7 % % IVS thick 17.6 % % LVPW thick 24.6 % LV mass(C)d 158.5 grams LV mass(C)dI 99.3 grams/m\S\2 LV mass(C)s 144.8 grams LV mass(C)sI 90.7 grams/m\S\2 SV(Teich) 29.8 ml SI(Teich) 18.7 ml/m\S\2 SV(cubed) 29.6 ml SI(cubed) 18.5 ml/m\S\2 Ao root diam 2.7 cm Ao root area 5.6 cm\S\2 ACS 1.8 cm LA dimension 3.6 cm LA/Ao 1.3 LVOT diam 2.0 cm LVOT area 3.1 cm\S\2 LVAd ap4 21.3 cm\S\2 LVLd ap4 6.4 cm EDV(MOD-sp4) 56.2 ml EDV(sp4-el) 60.0 ml LVAs ap4 14.9 cm\S\2 LVLs ap4 6.5 cm ESV(MOD-sp4) 27.2 ml ESV(sp4-el) 28.8 ml EF(MOD-sp4) 51.7 % EF(sp4-el) 51.9 % LVAd ap2 19.1 cm\S\2 LVLd ap2 5.7 cm EDV(MOD-sp2) 51.7 ml EDV(sp2-el) 54.5 ml LVAs ap2 12.8 cm\S\2 LVLs ap2 5.8 cm ESV(MOD-sp2) 23.5 ml ESV(sp2-el) 24.0 ml EF(MOD-sp2) 54.5 % EF(sp2-el) 55.9 % LVLd %diff -12.69 % EDV(MOD-bp) 57.8 ml LVLs %diff -11.78 % ESV(MOD-bp) 26.7 ml EF(MOD-bp) 53.7 % SV(MOD-sp4) 29.1 ml SI(MOD-sp4) 18.2 ml/m\S\2 SV(MOD-sp2) 28.2 ml SI(MOD-sp2) 17.7 ml/m\S\2 SV(MOD-bp) 31.0 ml SI(MOD-bp) 19.4 ml/m\S\2 SV(sp4-el) 31.1 ml SI(sp4-el) 19.5 ml/m\S\2 SV(sp2-el) 30.5 ml SI(sp2-el) 19.1 ml/m\S\2 Doppler Measurements and Calculations MV E max leonard 73.3 cm/sec MV A max leonard 90.1 cm/sec MV E/A 0.81 MV P1/2t max leonard 106.1 cm/sec MV P1/2t 56.5 msec MVA(P1/2t) 3.9 cm\S\2 MV dec slope 550.0 cm/sec\S\2 MV dec time 0.21 sec Ao V2 max 167.4 cm/sec Ao max PG 11.2 mmHg Ao max PG (full) 9.3 mmHg ELIZABETH(V,A) 1.3 cm\S\2 ELIZABETH(V,D) 1.3 cm\S\2 LV V1 max PG 1.9 mmHg LV V1 max 69.0 cm/sec PA V2 max 114.7 cm/sec PA max PG 5.3 mmHg PI max leonard 183.8 cm/sec PI max PG 13.5 mmHg PI dec slope 95.1 cm/sec\S\2 PI P1/2t 565.8 msec TR max leonard 253.2 cm/sec
== END 2018-05-05 10:58 | disposition short-term general hospital (02) | DRG 303 ==
LOC: EDBD 22:14 → C.EDC 22:15 → C.2T 05-05 00:59 → ENRESERV 05-05 01:17
PROVIDERS: ADMIT Hospitalist; ATTEND Hospitalist
DX: I25.119 Atherosclerotic heart disease of native coronary artery with unspecified angina pectoris (principal); M79.602 Pain in left arm; I12.9 Hypertensive chronic kidney disease with stage 1 through stage 4 chronic kidney disease, or unspecified chronic kidney disease; N18.3 Chronic kidney disease, stage 3 (moderate); E78.5 Hyperlipidemia, unspecified; K21.9 Gastro-esophageal reflux disease without esophagitis; I25.2 Old myocardial infarction; Z79.82 Long term (current) use of aspirin; Z79.899 Other long term (current) drug therapy; Z95.1 Presence of aortocoronary bypass graft; Z95.5 Presence of coronary angioplasty implant and graft

== ENCOUNTER 2020-05-19 13:53 | Inpatient (IN) ==
--- OUTSIDE RECORDS SUMMARY | 2020-05-19 13:56 | External Medical Summary | Continuity of Care Document ---
:1935 Author Name Socoror Foreman Address Unavailable Unavailable , Care Team Providers Name Role Phone Connor Joseph DO Unavailable [email or web address] Kristine SHAH Unavailable Unavailable Problems Active medical history not documented Allergies and Adverse Reactions Allergy history not documented Medications Medications not documented Procedures Procedures not documented Immunizations Immunizations not documented Plan of Treatment Planned Observations Planned Goals not documented Results No Known Results Results not documented Encounters Appointment; Skinny Joseph DO 25-Oct-2009 10:15 Encounter Diagnosis: Problem not documented
--- OUTSIDE RECORDS SUMMARY | 2020-05-19 13:57 | External Medical Summary | Continuity of Care Document ---
:1935 Author Name Socorro Foreman Address Unavailable Unavailable , Care Team Providers Name Role Phone Connor Joseph DO Unavailable [email or web address] Kristine SHAH Unavailable Unavailable Problems Active medical [...]
[2020-05-19] MEDS ORDERED: MoRPHine SULFATE 4 MG/ML 1 ML CARP\\VIAL IV STA (14:11)
[2020-05-19] MEDS ORDERED: ONDANSETRON INJ 2 MG/ML 2 ML VIAL IV STA (14:11)
[2020-05-19] MEDS ORDERED: SODIUM CHLORIDE 0.9% 500 ML IV SCH ×2 (14:15→23:15)
[2020-05-19] MEDS ORDERED: OPTIRAY 320 125ml IV ONE (14:18)
[2020-05-19 14:31] LABS: Partial Thromboplastin Ratio 0.8; Partial Thromboplastin Time 21.1 Seconds (21.0-31.0); Prothrombin Time 10.3 Seconds (9.0-12.0)
[2020-05-19 14:35] LABS: Alanine Aminotransferase 27 U/L (12-78); Aspartate Aminotransferase 37 U/L (15-37); BUN Creatinine Ratio 11.1 (10-20); Blood Urea Nitrogen 14 mg/dl (7-18); Calcium 9.5 mg/dl (8.5-10.1); Carbon Dioxide 25 mmol/L (21-32); Chloride 105 mmol/L (98-107); Creatinine Clr Calc Pharmacy 24.4 ml/min; Est GFR (Non-African American) 37.1; Glucose 130 mg/dl (70-99); Lipase 69 U/L (73-393); Potassium 3.9 mmol/L (3.5-5.1); Sodium 140 mmol/L (136-145)
--- NOTE | 2020-05-19 14:36 | Emergency Department Note ---
History of Present Illness General Chief Complaint: Chest Pain Stated Complaint: CHEST PAIN, VOMITING Time Seen by Provider: 05/19/20 14:01 Source: patient Mode of arrival: ambulatory Limitations: no limitations History of Present Illness Provider Complaint: chest pain Maximum Pain Intensity: 5 who presents to the ED with a chief complaint ofThis is an 85-year-old female retrosternal chest pain and epigastric abdominal pain that radiates into her back. The patient describes it as a pressure type sensation. Her symptoms started right around noon. Initially started with nausea. After she ate, she vomited and that is when the significant pain started. She states that she used nitroglycerin and this made her more sick. She has been vomiting and having significant nausea since her symptoms started. She denies any other complaints. No changes in her bowels. No shortness of breath. No fevers or recent illness. Symptoms are moderate to severe. Home Medications Home Medications Medication Instructions Recorded Confirmed Type Hydra Tears 1 drp OPB BID 05/19/20 05/19/20 History Mylanta Reg Strength 5 ml PO DIRECTED PRN 05/19/20 05/19/20 History acetaminophen [Tylenol Extra 500 mg PO DIRECTED PRN 05/19/20 05/19/20 History Strength] aspirin [Aspir-81] 81 mg PO DAILY 05/19/20 05/19/20 History atorvastatin 80 mg PO DAILY 05/19/20 05/19/20 History calcium carbonate-vitamin D3 2 tab PO DAILY 05/19/20 05/19/20 History [Calcium 500 + D] denosumab [Prolia] 60 mg SUBCUT DIRECTED 05/19/20 05/19/20 History diclofenac sodium 2 g TOPICAL QID 05/19/20 05/19/20 History duloxetine 40 mg PO DAILY 05/19/20 05/19/20 History isosorbide mononitrate 60 mg PO QAM 05/19/20 05/19/20 History lisinopril 2.5 mg PO DAILY 05/19/20 05/19/20 History lorazepam 0.5 mg PO BID PRN 05/19/20 05/19/20 History metoprolol succinate 25 mg PO DAILY 05/19/20 05/19/20 History nitroglycerin 400 mcg SUBLINGUAL DIRECTED PRN 05/19/20 05/19/20 History oxybutynin chloride 5 mg PO DAILY 05/19/20 05/19/20 History pantoprazole 40 mg PO DAILYBB 05/19/20 05/19/20 History Allergies Allergy/AdvReac Type Severity Reaction Status Date / Time adhesive Allergy Unknown RED, CANT Verified 05/19/20 16:26 TOLERATE PAPER TAPE nitroglycerin Allergy Unknown NITRO Verified 05/19/20 16:26 PATCH, ITHCY Past Med/Surg History Social History Smoking Status: Never smoker Feels Safe at Home: Yes Review of Systems A total of 10 systems reviewed and were otherwise negative Physical Exam Vital Signs Vital Signs - 24 hr 05/19/20 13:59 05/19/20 14:02 05/19/20 14:05 Temperature 36.7 C Temperature Source Oral Pulse Rate 80 63 Pulse Rate [Apical] Pulse Rate from SpO2 Sensor Pulse Rhythm [Apical] Respiratory Rate 22 26 H Respiratory Effort / Characteristics Respiratory Pattern Blood Pressure 202/100 H 202/100 H Blood Pressure [Left Arm] Blood Pressure Mean 134 116 Blood Pressure Mean [Left Arm] Pulse Oximetry 95 96 95 Oxygen Delivery Method Room Air Room Air Oxygen Flow Rate Sepsis Recent Fever Within 48 Hours No Sepsis New/Unexplained Change in Mental Status N/A Sepsis Action Taken by Nursing No Action Required 05/19/20 14:36 05/19/20 14:37 05/19/20 15:12 Temperature Temperature Source Pulse Rate 57 L 89 Pulse Rate [Apical] 59 L Pulse Rate from SpO2 Sensor Pulse Rhythm [Apical] Regular Respiratory Rate 22 20 24 Respiratory Effort / Characteristics Spontaneous Respiratory Pattern Regular Blood Pressure 198/86 H 202/87 H Blood Pressure [Left Arm] 198/86 H Blood Pressure Mean 127 117 Blood Pressure Mean [Left Arm] 123 Pulse Oximetry 95 92 Oxygen Delivery Method Room Air Room Air Oxymask Oxygen Flow Rate 8 Sepsis Recent Fever Within 48 Hours Sepsis New/Unexplained Change in Mental Status Sepsis Action Taken by Nursing 05/19/20 15:31 05/19/20 15:50 05/19/20 16:00 Temperature Temperature Source Pulse Rate 92 H 94 H 88 Pulse Rate [Apical] Pulse Rate from SpO2 Sensor 89 89 95 H Pulse Rhythm [Apical] Respiratory Rate 26 H 33 H 34 H Respiratory Effort / Characteristics Respiratory Pattern Blood Pressure 202/100 H Blood Pressure [Left Arm] Blood Pressure Mean 134 Blood Pressure Mean [Left Arm] Pulse Oximetry 95 98 Oxygen Delivery Method Oxymask Oxymask Oxymask Oxygen Flow Rate 8 8 8 Sepsis Recent Fever Within 48 Hours Sepsis New/Unexplained Change in Mental Status Sepsis Action Taken by Nursing 05/19/20 16:07 05/19/20 16:31 05/19/20 16:34 Temperature Temperature Source Pulse Rate 103 H Pulse Rate [Apical] Pulse Rate from SpO2 Sensor 96 H 100 H 100 H Pulse Rhythm [Apical] Respiratory Rate 32 H Respiratory Effort / Characteristics Respiratory Pattern Blood Pressure 174/102 H 170/90 H Blood Pressure [Left Arm] Blood Pressure Mean 126 114 Blood Pressure Mean [Left Arm] Pulse Oximetry 95 97 Oxygen Delivery Method Oxymask Oxymask Oxygen Flow Rate 8 8 Sepsis Recent Fever Within 48 Hours Sepsis New/Unexplained Change in Mental Status Sepsis Action Taken by Nursing 05/19/20 17:35 Temperature Temperature Source Pulse Rate 103 H Pulse Rate [Apical] Pulse Rate from SpO2 Sensor 104 H Pulse Rhythm [Apical] Respiratory Rate 29 H Respiratory Effort / Characteristics Respiratory Pattern Blood Pressure 169/95 H Blood Pressure [Left Arm] Blood Pressure Mean 125 Blood Pressure Mean [Left Arm] Pulse Oximetry 92 Oxygen Delivery Method Oxygen Flow Rate Sepsis Recent Fever Within 48 Hours Sepsis New/Unexplained Change in Mental Status Sepsis Action Taken by Nursing CONSTITUTIONAL/VITAL SIGNS: Reviewed / noted above. GENERAL: Non-toxic in appearance. INTEGUMENTARY: Warm, dry, and [place]. HEAD: Normocephalic. EYES: without scleral icterus or trauma. ENT/OROPHARYNX: clear and moist. LYMPHADENOPATHY/NECK: Is supple without lymphadenopathy or meningismus. RESPIRATORY: Lungs clear and equal. CARDIOVASCULAR: Regular rate and rhythm. GI/ABDOMEN: Soft and tender in the epigastric area. No organomegaly or pulsatile mass. No rebound or guarding. Normal bowel sounds. EXTREMITIES: Warm and well perfused. BACK: No CVA tenderness. NEUROLOGICAL: Intact without focal deficits. PSYCHIATRIC: normal affect. MUSCULOSKELETAL: Normally developed with good muscle tone. TRIAGE NURSING DOCUMENTATION REVIEWED. Course Administered Medications Discontinued Medications Hydralazine HCl (Hydralazine Hcl) 5 mg IV NOW ONE Stop: 05/19/20 15:33 Last Admin: 05/19/20 16:04 Dose: 5 mg Documented by: [id number] Hydromorphone HCl (Dilaudid) 1 mg IV NOW STA Stop: 05/19/20 14:38 Last Admin: 05/19/20 14:39 Dose: 1 mg Documented by: [id number] Sodium Chloride (Nss) 500 mls @ 999 mls/hr IV .Q31M SIN Stop: 05/19/20 14:45 Last Infusion: 05/19/20 14:48 Dose: 0 mls/hr Documented by: [id number] Admin: 05/19/20 14:16 Dose: 999 mls/hr Documented by: [id number] Cefoxitin Sodium (Mefoxin) 2,000 mg in 60 mls @ 100 mls/hr IV NOW STA Stop: 05/19/20 16:07 Last Infusion: 05/19/20 16:42 Dose: 0 mls/hr Documented by: [id number] Admin: 05/19/20 16:06 Dose: 100 mls/hr Documented by: [id number] Ioversol (Optiray 320 125ml) 118 ml IV ONCE ONE Stop: 05/19/20 14:19 Last Admin: 05/19/20 14:18 Dose: 118 ml Documented by: [id number] Morphine Sulfate (Morphine Sulfate) 4 mg IV NOW STA Stop: 05/19/20 14:12 Last Admin: 05/19/20 14:17 Dose: 4 mg Documented by: [id number] Ondansetron HCl (Zofran) 4 mg IV NOW STA Stop: 05/19/20 14:12 Last Admin: 05/19/20 14:16 Dose: 4 mg Documented by: [id number] Medical Decision Making Differential Diagnosis The differential that was considered includes acute myocardial infarction, acute coronary syndrome, myocarditis, pericarditis, pericardial effusions /tamponade, esophageal perforation, thoracic aortic dissection, pulmonary embolism, pneumonia, pneumothorax, pancreatitis, shingles, acute cholecystitis, perforated abdominal viscus. Medical Records Attestation: I reviewed the patient's medical records. Home Medications Current Medication List: was personally reviewed by me Laboratory Data Attestation: I reviewed the patient's lab results. Result diagrams: 05/19/20 14:07 05/19/20 14:07 Labs: Lab Results 05/19/20 05/19/20 05/19/20 Range/Units 14:07 14:07 14:07 WBC 9.63 (4.8-10.8) K/uL RBC 4.32 (4.2-5.4) M/uL Hgb 12.6 (12.0-16.0) g/dL Hct 38.0 (37-47) % MCV 88.0 (80-100) fL MCH 29.2 (25-34) pg MCHC 33.2 (32-36) g/dL RDW Std Deviation 46.0 (36.4-46.3) fL RDW Coeff of Lisa 14.2 (11.5-14.5) % Plt Count 211 (130-400) K/uL MPV 9.5 (7.4-10.4) fL Immature Gran % (Auto) 0.1 % Neut % (Auto) 74.8 % Lymph % (Auto) 19.9 % [place] % (Auto) 3.3 % Eos % (Auto) 1.8 % Baso % (Auto) 0.1 % Neut # (Auto) 7.20 H (1.4-6.5) K/uL Lymph # (Auto) 1.92 (1.2-3.4) K/uL [place] # (Auto) 0.32 (0.11-0.59) K/uL Eos # (Auto) 0.17 (0-0.5) K/uL Baso # (Auto) 0.01 (0-0.2) K/uL Immature Gran # (Auto) 0.01 (0.00-0.02) K/uL PT 10.3 (9.0-12.0) Seconds INR 1.0 (0.9-1.1) APTT 21.1 (21.0-31.0) Seconds PTT Ratio 0.8 Sodium 140 (136-145) mmol/L Potassium 3.9 (3.5-5.1) mmol/L Chloride 105 (98-107) mmol/L Carbon Dioxide 25 (21-32) mmol/L Anion Gap 10.0 (3-11) BUN 14 (7-18) mg/dl Creatinine 1.30 H (0.6-1.2) mg/dl Est Cr Clr Drug Dosing 24.4 ml/min Est GFR ( Amer) 43.0 Est GFR (Non-Af Amer) 37.1 BUN/Creatinine Ratio 11.1 (10-20) Glucose 130 H (70-99) mg/dl Calcium 9.5 (8.5-10.1) mg/dl Total Bilirubin 1.3 H (0.2-1) mg/dl AST 37 (15-37) U/L ALT 27 (12-78) U/L Alkaline Phosphatase 124 H (45-117) U/L Troponin I < 0.015 (0-0.045) ng/ml Total Protein 7.6 (6.4-8.2) gm/dl Albumin 4.0 (3.4-5.0) gm/dl Globulin 3.6 (2.5-4.0) gm/dl Albumin/Globulin Ratio 1.1 (0.9-2) Lipase 69 L (73-393) U/L Imaging Data CT scan - chest: Radiologist's impression: IMPRESSION: 1. Findings are consistent with acute cholecystitis. Surgical consultation is advised. 2. There is intra and extrahepatic biliary ductal dilatation. The common bile duct is dilated to the ampulla. 3. Unremarkable CT angiogram of the thoracic aorta. 4. There is no evidence of pulmonary embolus in the main, lobar, or segmental pulmonary arteries. 5. Cardiomegaly. 6. There is no airspace consolidation or pleural effusion. 7. Moderate to large hiatal hernia. 8. There is no aneurysm or dissection of the abdominal aorta. 9. 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 10. There is moderate stenosis of the origin of the right renal artery and mild stenosis at the origin of the left renal artery. 11. A 2 cm nodule is suggested in the left breast. This is not well evaluated by CT and follow-up with nonemergent mammography is recommended for further assessment. 12. Additional findings as above SINGLE VIEW CHEST CLINICAL HISTORY: Atypical chest pain. FINDINGS: An AP, portable, upright chest radiograph is compared to study dated 05/04/2018 and correlated with chest CT performed the same day 05/19/2020. The examination is degraded by portable technique and patient rotation. The patient is status post midline sternotomy. The heart is enlarged. There is mild pulmonary vascular congestion. Atelectasis is present at the left lung base. No airspace consolidation is seen typical for pneumonia and there is no large pleural effusion. No pneumothorax is seen. The skeletal structures are osteopenic. The bony thorax is grossly intact. IMPRESSION: Cardiomegaly with mild pulmonary vascular congestion. ECG Data Attestation: I personally reviewed and interpreted this ECG as follows: Indication: chest pain Rate (beats per minute): 59 Rhythm: sinus rhythm Findings: + 1st degree AV block; no PVC, no ST elevation and no prolonged QT Blood Pressure Blood Pressure Findings: Elevated blood pressure MDM Narrative The patient presents as above primarily with an epigastric abdominal pain/lower chest pain that radiates into the back. This started rather suddenly after eating lunch. She was feeling nauseated prior to lunch. She used nitroglycerin but that did not help. She has been vomiting since her symptoms started. Her exam reveals hypertension which much of this may be related to her pain. Her pain is severe and she has been vomiting. She does have some epigastric abdominal tenderness on my exam. The patient's EKG shows a sinus bradycardia at a rate of 59 without ischemic changes. CBC is normal. INR is 1.0. Complete metabolic panel was unremarkable with exception of a total bilirubin of 1.3 and alkaline phosphatase of 124. Troponin and lipase are negative. A CT scan of the chest, abdomen pelvis shows acute cholecystitis. I did speak with Dr. Edwards. He recommends medical admission, MRCP and Mefoxin. The IV Mefoxin was provided. The patient also received IV morphine and IV Dilaudid as well as IV Zofran. She was given 5 mg of IV hydralazine for her hypertension. She did receive 500 cc of normal saline IV as well. Impression & Plan Acute cholecystitis, Hypertension Discharge Plan Visit Data Chief Complaint: Chest Pain Stated Complaint: CHEST PAIN, VOMITING ED Provider: Ethan Delaney Discharge Problem: Acute cholecystitis, Hypertension Forms Stand Alone Forms: My [facility] Prescriptions Prescriptions: No Action atorvastatin 80 mg Tablet 80 mg PO DAILY RF: 0 metoprolol succinate 50 mg Tablet Extended Release 24 Hr 25 mg PO DAILY RF: 0 aspirin [Aspir-81] 81 mg Tablet,Delayed Release (Dr/Ec) 81 mg PO DAILY RF: 0 acetaminophen [Tylenol Extra Strength] 500 mg Tablet 500 mg PO DIRECTED PRN (Reason: Fever Or Pain) RF: 0 isosorbide mononitrate 60 mg tablet extended release 24 hr 60 mg PO QAM RF: 0 lorazepam 0.5 mg Tablet 0.5 mg PO BID PRN (Reason: Anxiety) RF: 0 pantoprazole 40 mg tablet,delayed release (DR/EC) 40 mg PO DAILYBB RF: 0 nitroglycerin 400 mcg/spray [place],Non-Aerosol 400 mcg sublingual DIRECTED PRN (Reason: Chest Pain) RF: 0 oxybutynin chloride 5 mg tablet 5 mg PO DAILY RF: 0 lisinopril 2.5 mg Tablet 2.5 mg PO DAILY RF: 0 duloxetine 20 mg Capsule,Delayed Release(Dr/Ec) 40 mg PO DAILY RF: 0 calcium carbonate-vitamin D3 [Calcium 500 + D] 500 mg(1,250mg) -200 unit Tablet 2 tab PO DAILY RF: 0 diclofenac sodium 1 % Gel 2 g TOPICAL QID RF: 0 Prolia 60 mg/mL Syringe 60 mg SUBCUT DIRECTED RF: 0 Hydra Tears 1 drp OPB BID RF: 0 Mylanta Reg Strength 5 ml PO DIRECTED PRN (Reason: REFLUX SYMPTOMS) RF: 0 Discharge Problem: Hypertension Qualifiers: Hypertension type: unspecified Qualified Code(s): I10 - Essential (primary) hypertension
[2020-05-19] MEDS ORDERED: HYDROmorphone INJ 1 MG/ML SYRINGE IV STA (14:37)
[2020-05-19 14:38] LABS: Basophils # (auto) 0.01 K/uL (0-0.2); Basophils % (auto) 0.1 %; Eosinophils # (auto) 0.17 K/uL (0-0.5); Eosinophils % (auto) 1.8 %; Hemoglobin 12.6 g/dL (12.0-16.0); Immature Granulocytes # (auto) 0.01 K/uL (0.00-0.02); Immature Granulocytes % (auto) 0.1 %; Lymphocytes # (auto) 1.92 K/uL (1.2-3.4); Lymphocytes % (auto) 19.9 %; Mean Corpuscular Hemoglobin 29.2 pg (25-34); Mean Corpuscular Hgb Conc 33.2 g/dL (32-36); Mean Platelet Volume 9.5 fL (7.4-10.4); Monocytes # (auto) 0.32 K/uL (0.11-0.59); Monocytes % (auto) 3.3 %; Neutrophils % (auto) 74.8 %; Platelet Count 211 K/uL (130-400); RDW Coefficient of Variation 14.2 % (11.5-14.5); Red Blood Count 4.32 M/uL (4.2-5.4); White Blood Count 9.63 K/uL (4.8-10.8)
[2020-05-19 14:40] LABS: Albumin Globulin Ratio 1.1 (0.9-2); Alkaline Phosphatase 124 U/L (45-117); Bilirubin,Total 1.3 mg/dl (0.2-1); Globulin 3.6 gm/dl (2.5-4.0); Total Protein 7.6 gm/dl (6.4-8.2); Troponin I < 0.015 ng/ml (0-0.045)
--- NOTE | 2020-05-19 15:21 | CT Scan Report ---
CT ANGIOGRAM OF THE CHEST COMBO, CT ANGIOGRAM OF THE ABDOMEN CLINICAL HISTORY: Atypical chest pain. Epigastric abdominal pain. Back pain. COMPARISON STUDY: Chest CT dated 07/20/2016. CT angiogram of the chest, abdomen, and pelvis dated . TECHNIQUE: Unenhanced CT of the chest is performed. Following the IV administration of 118 cc of Opti ray 320, CT angiogram of the chest and abdomen was performed from the thoracic inlet to the pelvic in let. Images are reviewed in the axial, sagittal, and coronal planes. 3-D MIPS images are created and assessed. IV contrast was administered without complication. A dose lowering technique was utilized a dhering to the principles of ALARA. CT DOSE: 700.42 mGy.cm FINDINGS: CHEST: Thyroid: Imaged portions of the thyroid gland are normal in size and attenuation. A 2.5 cm low-attenu ation nodule is noted in the right lobe. This is been present dating back to 2015. Thoracic aorta: No intramural hematoma is identified on the unenhanced series. There is atherosclerot ic calcification of the thoracic aorta, with is normal in caliber and demonstrates bovine variant arc h anatomy. No aneurysm or dissection is seen. The arch vessels are widely patent. Pulmonary vasculature: The pulmonary trunk is normal in caliber. There are no filling defects identif ied in the main, lobar, or segmental pulmonary arteries to suggest pulmonary embolus. Heart: The patient is status post midline sternotomy. The heart is mildly enlarged and without perica rdial effusion. The coronary arteries are densely calcified. Lungs and pleural spaces: Evaluation of the lung parenchyma is modestly degraded by motion artifact. There is no airspace consolidation or pleural effusion. Foci of scarring/atelectasis are present at b oth lung bases. The trachea and central airways are clear. Foci of air trapping are present throughou t both lungs. There are scattered (at least 5) small pulmonary pleural-based nodules scattered throug hout both lungs. The largest nodule measures 5 mm seen in the right lower lobe in image #150. A 4 mm pleural-based nodule at the left lung base seen on image #155. These nodules are unchanged dating tristian k to 2015 and of doubtful significance. Mediastinum: There is no mediastinal lymphadenopathy. Trang: Clear. Axillae: There is no axillary lymphadenopathy. Bony thorax: The skeletal structures are osteopenic. Degenerative change and hyperkyphosis is noted t hroughout the thoracic spine. No destructive bony lesions are identified. Soft tissues: A 2.0 cm nodule is suggested in the left breast on image #151. ABDOMEN AND PELVIS: Liver: The contrast-enhanced liver is normal in size, contour, and attenuation. There is mild to mode rate intrahepatic biliary ductal dilatation. The main portal veins appear patent. Gallbladder: The gallbladder is markedly distended. There is gallbladder wall is thickened and edemat ous, and there is faint pericholecystic stranding. Findings are consistent with acute cholecystitis. The common bile duct is dilated to the pancreas. This measures up to 1.4 cm in diameter. Spleen: Normal in size and attenuation noting heterogeneous arterial phase enhancement. Pancreas: Atrophic and grossly unremarkable. The pancreatic duct is normal in caliber. Adrenal glands: Unremarkable. Kidneys: The contrast enhanced kidneys are atrophic and without hydronephrosis. The kidneys enhance a nd excrete symmetrically. Abdominal aorta and iliac arteries: The abdominal aorta is normal in caliber noting mild to moderate atherosclerotic calcification. Intraluminal thrombus is noted in the proximal abdominal aorta on imag e #137. No dissection is seen. The common iliac arteries are patent bilaterally. Major branches of the abdominal aorta: The celiac trunk, superior mesenteric, and inferior mesenteric arteries are widely patent. 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 This has increased from 2016. Hepatic arterial anatomy is conventional. The splenic artery is pa tent. There are single bilateral renal arteries. There is moderate stenosis at the origin of the ri ght renal artery seen on image #90. There is mild stenosis of the origin of the left renal artery see n on image #103. Stomach and bowel: There is a moderate to large hiatal hernia. The visualized bowel loops show no man dence of obstruction. Peritoneum: There is no intraperitoneal free air or abdominal ascites. There is a fat-containing umbi lical hernia. Lymphadenopathy: None. Skeletal structures: The skeletal structures are osteopenic. No destructive bony lesions are seen. IMPRESSION: 1. Findings are consistent with acute cholecystitis. Surgical consultation is advised. 2. There is intra and extrahepatic biliary ductal dilatation. The common bile duct is dilated to the ampulla. 3. Unremarkable CT angiogram of the thoracic aorta. 4. There is no evidence of pulmonary embolus in the main, lobar, or segmental pulmonary arteries. 5. Cardiomegaly. 6. There is no airspace consolidation or pleural effusion. 7. Moderate to large hiatal hernia. 8. There is no aneurysm or dissection of the abdominal aorta. 9. 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 10. 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 11. A 2 cm nodule is suggested in the left breast. This is not well evaluated by CT and follow-up wit h nonemergent mammography is recommended for further assessment. 12. Additional findings as above ACT 112: Negative or not required by law. Electronically signed by: Lawrence Lamar M.D. 05/19/2020 3:20 PM
[2020-05-19] MEDS ORDERED: HydrALAZINE HCL 20 MG/ML VIAL IV ONE (15:32)
[2020-05-19] MEDS ORDERED: cefOXitin 2,000 MG/60 ML BAG IV STA (15:32)
--- NOTE | 2020-05-19 15:53 | Surgery Consultation ---
Date of Consultation May 19, 2020 Assessment & Plan (1) Cholecystitis: Patient with evidence of cholecystitis with gallbladder wall edema I am also concerned about her common bile duct being 1.4 cm Do think at some point she will need a cholecystectomy possibly tomorrow I would obtain an MRCP we may consider a GI consult I will tentatively added onto the operating room schedule for tomorrow We will give her some IV antibiotics This will all depend on her medical stability History of Present Illness History of Present Illness 85-year-old female seen in the emergency room with initially chest pain and epi gastric pain associated with nausea and vomiting Her CAT scan shows a dilated thickened gallbladder with some fluid dilated common bile duct to 1.4 cm her total bilirubin is 1.3 He has a history of hypertension, coronary artery disease status post CABG, hyperlipidemia is post appendectomy She has significant hypertension at the present time When the patient came back from CAT scan she had some problems with tachypnea and anxiety currently has a facemask in place with O2 Her daughter is with her at the bedside Allergies Allergy/AdvReac Type Severity Reaction Status Date / Time adhesive Allergy Unknown RED, CANT Verified 05/19/20 16:26 TOLERATE PAPER TAPE nitroglycerin Allergy Unknown NITRO Verified 05/19/20 16:26 PATCH, ITHCY Home Medications Home Medications Medication Instructions Recorded Confirmed Type Hydra Tears 1 drp OPB BID 05/19/20 05/19/20 History Mylanta Reg Strength 5 ml PO DIRECTED PRN 05/19/20 05/19/20 History acetaminophen [Tylenol Extra 500 mg PO DIRECTED PRN 05/19/20 05/19/20 History Strength] aspirin [Aspir-81] 81 mg PO DAILY 05/19/20 05/19/20 History atorvastatin 80 mg PO DAILY 05/19/20 05/19/20 History calcium carbonate-vitamin D3 2 tab PO DAILY 05/19/20 05/19/20 History [Calcium 500 + D] denosumab [Prolia] 60 mg SUBCUT DIRECTED 05/19/20 05/19/20 History diclofenac sodium 2 g TOPICAL QID 05/19/20 05/19/20 History duloxetine 40 mg PO DAILY 05/19/20 05/19/20 History isosorbide mononitrate 60 mg PO QAM 05/19/20 05/19/20 History lisinopril 2.5 mg PO DAILY 05/19/20 05/19/20 History lorazepam 0.5 mg PO BID PRN 05/19/20 05/19/20 History metoprolol succinate 25 mg PO DAILY 05/19/20 05/19/20 History nitroglycerin 400 mcg SUBLINGUAL DIRECTED PRN 05/19/20 05/19/20 History oxybutynin chloride 5 mg PO DAILY 05/19/20 05/19/20 History pantoprazole 40 mg PO DAILYBB 05/19/20 05/19/20 History Patient History Social History Smoking Status: Never smoker Feels Safe at Home: Yes Physical Exam Physical Exam: Patient is currently in her to room bed with a facemask in place mildly tachycardic and Tachypnea Her right arm is somewhat edematous from infiltration of the CT contrast Constitutional: + ill appearing Eyes: + anicteric sclerae Respiratory: Mild tachypnea Cardiovascular: Mild tachycardia Musculoskeletal: Head/Neck/Chest: head atraumatic Skin: no rashes, warm and dry Neurologic: awake Psychiatric: Orientation: alert Results & Data Vital Signs (Past 12 Hours) Vital Signs Temp Pulse Pulse Resp BP BP Pulse Ox 05/19/20 15:12 89 24 202/87 H 92 05/19/20 14:37 59 L 20 198/86 H 95 05/19/20 14:36 57 L 22 198/86 H 05/19/20 14:05 95 05/19/20 14:02 63 26 H 202/100 H 96 05/19/20 13:59 36.7 C 80 22 202/100 H 95 I did review her scan PG Care Time/CCT Total # of Minutes Spent Total Time Spent with Patient: Total time spent is greater than 50% in coordination of care (as documented) at patient's floor/unit and/or counseling patient: Coding Level of Care Code 23681 Initial Inpt Care Lvl 3 Diagnoses Cholecystitis K81.9
--- NOTE | 2020-05-19 16:00 | XRay Report ---
SINGLE VIEW CHEST CLINICAL HISTORY: Atypical chest pain. FINDINGS: An AP, portable, upright chest radiograph is compared to study dated 05/04/2018 and correlat ed with chest CT performed the same day 05/19/2020. The examination is degraded by portable technique a nd patient rotation. The patient is status post midline sternotomy. The heart is enlarged. There is m ild pulmonary vascular congestion. Atelectasis is present at the left lung base. No airspace consolid ation is seen typical for pneumonia and there is no large pleural effusion. No pneumothorax is seen. The skeletal structures are osteopenic. The bony thorax is grossly intact. IMPRESSION: Cardiomegaly with mild pulmonary vascular congestion. ACT 112: Negative or not required by law. Electronically signed by: Lawrence Lamar M.D. 05/19/2020 3:59 PM
--- NOTE | 2020-05-19 16:21 | Electrocardiogram Report ---
Test Reason : Blood Pressure : / mmHG Vent. Rate : 059 BPM Atrial Rate : 059 BPM P-R Int : 232 ms QRS Dur : 092 ms QT Int : 418 ms P-R-T Axes : 027 051 027 degrees QTc Int : 413 ms Sinus bradycardia with 1st degree A-V block Poor R wave progression, consider anterior SC vs. lead placement vs. LVH Abnormal ECG When compared with ECG of 04-MAY-2018 22:21, Premature supraventricular complexes are no longer Present Criteria for Inferior infarct are no longer Present Confirmed by Martin Oliver ([id number]) on 05/19/2020 4:21:27 PM Referred By: Confirmed By:Santana Oliver
--- NOTE | 2020-05-19 18:04 | Magnetic Resonance Report ---
MR MRCP CLINICAL HISTORY: dilated common bile duct. Abnormal abdomen and pelvis CT. COMPARISON STUDY: Abdomen and pelvis CT 05/19/2020. FINDINGS: Poststernotomy changes. The heart is enlarged. Moderate hiatus hernia. The bladder is diste nded. Moderate intra and extra hepatic bile duct dilatation. Common bile duct is distended up to 14 m m. The gallbladder is distended. The gallbladder wall is thickened and there is gallbladder wall marleen a. The kidneys, spleen, and adrenal glands are unremarkable. Motion artifact obscures the common bile duct and main pancreatic duct. Possible cut off at the distal common bile duct. However, this is dif ficult to confirm due to the motion artifact. IMPRESSION: Near nondiagnostic study due to motion artifact. There is again noted moderate intra and extrahepatic bile duct dilatation with a distended gallbladder demonstrating a thickened wall and pericholecystic fluid. Therefore, findings remain suspicious for acute cholecystitis. The etiology of the distended bile ducts is not identified on this study but could be due to a distal obstructing stone. Surgical c onsultation and/or ERCP recommended for further evaluation. ACT 112: Negative or not required by law. Electronically signed by: Jim Funes M.D. 05/19/2020 6:02 PM
--- NOTE | 2020-05-19 18:24 | History & Physical Report ---
Date of Service May 19, 2020 Assessment & Plan (1) Acute cholecystitis: -Admit to telemetry -Patient presenting from home for evaluation of epigastric/chest pain -In the ED, ABD CTA showing signs of acute cholecystitis and CBD dilatation -LFTs WNL -MRCP nondiagnostic secondary to motion artifact, however there may be a distal obstructing stone -Does not appear septic -General surgery and GI consults -S/p cefoxitin in the ED, will continue with -N.p.o. -Anesthesia and cardiology evaluations for preoperative eval -Preop echo -CTA chest noting intraluminal thrombus is noted in the proximal abdominal aorta -appreciate cardiology recommendations (2) Hypertension: -BP elevated on arrival, likely secondary to pain/situational -Received IV hydralazine with improvement -Continue home doses of lisinopril, isosorbide, metoprolol (3) CAD (coronary artery disease): (4) Chest pain: -Patient reports some chest pain, this seems to be GI in nature given diagnosis of acute cholecystitis -Initial troponin negative, EKG without acute ST changes -Continue cycle cardiac enzymes, check resting echo -Continue aspirin, statin, beta-bhupendra, nitrate (5) CKD (chronic kidney disease), stage III: -Baseline creatinine runs in the low ones -Noted to be 1.3 today -Monitor renal functions (6) Renal artery stenosis: -Moderate right renal artery stenosis and mild left renal artery stenosis noted on CT scan (7) Breast nodule: -2 mm left breast nodule noted on CT scan -will need outpatient mammogram follow-up (8) DVT prophylaxis: -SCDs due to possible invasive procedure History of Present Illness Chief Complaint: Abdominal pain Primary Care Provider: Anita García MD 85-year-old female with PMH HTN, CAD, osteoporosis, CKD stage III, and other problems listed below who presents the ED for evaluation of abdominal pain. Patient reports that around 1230, she developed epigastric pain. This pain seemed to radiate up into her chest causing some chest pressure. Patient took sublingual nitroglycerin without any resolution of her symptoms and then presented to the ED for further evaluation. Patient has associated nausea but denies any vomiting. No fevers or chills. Denies diarrhea. Has chronic exertional shortness of breath which is unchanged baseline. No lightheadedness, dizziness, diaphoresis, syncopal events. Reports she otherwise has been feeling well recently. No urinary symptoms. In the ED, abdomen CTA is showing evidence of acute cholecystitis and CBD dilatation. Blood pressure was elevated on arrival 202/100, patient received IV hydralazine with improvement in BP. She is otherwise hemodynamically stable, no leukocytosis. General surgery evaluated the patient in the ED. She was given IV cefoxitin, IV Dilaudid, IV morphine, IV Zofran, IVF. Allergies Allergy/AdvReac Type Severity Reaction Status Date / Time adhesive Allergy Unknown RED, CANT Verified 05/19/20 16:26 TOLERATE PAPER TAPE nitroglycerin Allergy Unknown NITRO Verified 05/19/20 16:26 PATCH, ITHCY Home Medications Home Medications Medication Instructions Recorded Confirmed Type Hydra Tears 1 drp OPB BID 05/19/20 05/19/20 History Mylanta Reg Strength 5 ml PO DIRECTED PRN 05/19/20 05/19/20 History acetaminophen [Tylenol Extra 500 mg PO DIRECTED PRN 05/19/20 05/19/20 History Strength] aspirin [Aspir-81] 81 mg PO DAILY 05/19/20 05/19/20 History atorvastatin 80 mg PO DAILY 05/19/20 05/19/20 History calcium carbonate-vitamin D3 2 tab PO DAILY 05/19/20 05/19/20 History [Calcium 500 + D] denosumab [Prolia] 60 mg SUBCUT DIRECTED 05/19/20 05/19/20 History diclofenac sodium 2 g TOPICAL QID 05/19/20 05/19/20 History duloxetine 40 mg PO DAILY 05/19/20 05/19/20 History isosorbide mononitrate 60 mg PO QAM 05/19/20 05/19/20 History lisinopril 2.5 mg PO DAILY 05/19/20 05/19/20 History lorazepam 0.5 mg PO BID PRN 05/19/20 05/19/20 History metoprolol succinate 25 mg PO DAILY 05/19/20 05/19/20 History nitroglycerin 400 mcg SUBLINGUAL DIRECTED PRN 05/19/20 05/19/20 History oxybutynin chloride 5 mg PO DAILY 05/19/20 05/19/20 History pantoprazole 40 mg PO BID 05/19/20 05/19/20 History Past Med/Surg History Medical History Anxiety (Inactive) CAD (coronary artery disease) (Chronic) 2003-CABG x3 Cardiac cath 2018-severe lower [place] vessel CAD however no change in cardiac cath in 2012, grafts patent CKD (chronic kidney disease), stage III (Chronic) Dyslipidemia (Inactive) GERD (gastroesophageal reflux disease) (Inactive) History of iron deficiency anemia (Inactive) Hypertension (Acute) Osteoarthritis (Inactive) Osteoporosis (Inactive) Rotator cuff arthropathy (Inactive) Surgical History History of bladder suspension procedure (Inactive) Hx of appendectomy (Inactive) Hx of cataract surgery (Inactive) Hx of laparoscopy (Inactive) S/P CABG x 3 Family History Mother Breast cancer Sister Breast cancer Social History Smoking Status: Never smoker Hx Alcohol Use: No Hx Substance Use: No Preferred Language: Indian Communication Ability: Effective Beliefs That Will Affect Care: None Current Living Situation: Alone Other Information That Helps Us Care for You: No Feels Safe at Home: Yes Safety Concerns: Feels Safe At This Time Review of Systems Review of Systems: ROS per HPI, all other systems reviewed and negative Physical Exam Physical Exam: Please refer to Dr. Abreu's addendum for physical exam Results & Data Results & Data ([facility]) Vital Signs (Past 12 Hours) Vital Signs Temp Pulse Pulse Resp BP BP Pulse Ox 05/19/20 18:00 102 H 36 H 155/91 H 96 05/19/20 17:35 103 H 29 H 169/95 H 92 05/19/20 16:31 170/90 H 97 05/19/20 16:07 103 H 32 H 174/102 H 95 05/19/20 16:00 88 34 H 98 05/19/20 15:50 94 H 33 H 95 05/19/20 15:31 92 H 26 H 202/100 H 05/19/20 15:12 89 24 202/87 H 92 05/19/20 14:37 59 L 20 198/86 H 95 05/19/20 14:36 57 L 22 198/86 H 05/19/20 14:05 95 05/19/20 14:02 63 26 H 202/100 H 96 05/19/20 13:59 36.7 C 80 22 202/100 H 95 Laboratory Results Short CBC 05/19/20 Range/Units 14:07 WBC 9.63 (4.8-10.8) K/uL Hgb 12.6 (12.0-16.0) g/dL Hct 38.0 (37-47) % Plt Count 211 (130-400) K/uL BMP 05/19/20 14:07 Sodium 140 Potassium 3.9 Chloride 105 Carbon Dioxide 25 BUN 14 Creatinine 1.30 H Glucose 130 H Calcium 9.5 Cardiac Enzymes 05/19/20 Range/Units 14:07 Troponin I < 0.015 (0-0.045) ng/ml Liver Function 05/19/20 Range/Units 14:07 Total Bilirubin 1.3 H (0.2-1) mg/dl AST 37 (15-37) U/L ALT 27 (12-78) U/L Alkaline Phosphatase 124 H (45-117) U/L Albumin 4.0 (3.4-5.0) gm/dl Diagnostic Findings CXR IMPRESSION: Cardiomegaly with mild pulmonary vascular congestion. CHEST/ABD CTA IMPRESSION: 1. Findings are consistent with acute cholecystitis. Surgical consultation is advised. 2. There is intra and extrahepatic biliary ductal dilatation. The common bile duct is dilated to the ampulla. 3. Unremarkable CT angiogram of the thoracic aorta. 4. There is no evidence of pulmonary embolus in the main, lobar, or segmental pulmonary arteries. 5. Cardiomegaly. 6. There is no airspace consolidation or pleural effusion. 7. Moderate to large hiatal hernia. 8 There is no aneurysm or dissection of the abdominal aorta. 9. 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 10. There is moderate stenosis of the origin of the right renal artery and mild stenosis at the origin of the left renal artery. 11. A 2 cm nodule is suggested in the left breast. This is not well evaluated by CT and follow-up with nonemergent mammography is recommended for further assessment. 12. Additional findings as above MRCP IMPRESSION: Near nondiagnostic study due to motion artifact. There is again noted moderate intra and extrahepatic bile duct dilatation with a distended gallbladder demonstrating a thickened wall and pericholecystic fluid. Therefore, findings remain suspicious for acute cholecystitis. The etiology of the distended bile ducts is not identified on this study but could be due to a distal obstructing stone. Surgical consultation and/or ERCP recommended for further evaluation. Code Status & VTE Plan Code Status Patient is a full code as per Dr. Abreu's discussion with her. VTE Prophylaxis Plan VTE Prophylaxis will be ordered: Yes Supervising Physician Co-Signing Physician Notes ATTENDING ADDENDUM : pt seen and examined , care co ordinated with Beryl HOLDER lab and images reviewed 85 yo F with history of extensive coronary artery disease, multiple comorbidities, Admitted with epigastric discomfort/pain, CT abdomen pelvis shows cholecystitis, MRCP shows distal CBD choledocholithiasis Patient's initial troponin was negative in the ER, Repeat troponin elevated 2.60 Started on IV heparin. Due to complexity of medical issues, patient will need cardiology, GI, and surgery evaluation, transfer to [facility] Date of Service: May 19, 2020 Physical exam: General: No apparent distress, anxious HEENT: Sclera nonicteric Heart: Regular S1-S2/no lower extremity edema Lungs: Faint rales on left base, no wheeze Abdomen: Right upper quadrant, and epigastric tenderness, abdomen soft, bowel sounds diminished Extremity: No rash or deformity, no lower extremity edema Neuro: No focal neurological deficit, alert awake oriented x3 Assessment and plan NSTEMI troponin elevation noted 2.60 underlying severe coronary artery disease admitted earlier with sudden onset of severe epigastric pain with chest heaviness associated with diaphoresis , nausea/vomiting and dizzy spell CT abdomen/pelvis shows acute cholecystitis with dilated CBD pt was seen by Surgery team and by myself and Beryl HOLDER in ER pt is high risk for nayeli and post operative cardiac decompensation ( [place]/CHF /Arrythmia ) given extensive CAD , multiple co-morbidities CT chest also reveals proximal abdominal aorta thrombus , severe calcified Coronaries , moderate right renal artery stenosis . EKG had no acute ishemic change pre op Cardiac eval and Anethesiology consult requested ECHO and cardiac markers ordered . Troponin significantly elevated to > 2.6 pt started on IV heparin wt based protocol MRCP shows possible distal CBD choledocholithiasis Discussed with manager of exhibitions and collections [facility] cardiology pt needs to be transferred to [place] for gall bladder procedure -possible cholecystoscopy /ERCP [facility] will be contacted cont IV heparin wt based protocol , IV metoprolol if [place] does not have a bed avaiable right away , pt need to be observed in ICU for close monitoring of hemodynamics ICU team updated Juli Abreu MD (1) Hypertension Hypertension type: unspecified Qualified Code(s): I10 - Essential (primary) hypertension
--- NOTE | 2020-05-19 18:32 | Ultrasound Report ---
ABDOMINAL ULTRASOUND, RIGHT UPPER QUADRANT HISTORY: epig abd pain, n/v. COMPARISON: Abdomen and pelvis CT 05/19/2020. FINDINGS: Pancreas: Obscured by overlying bowel gas. Liver: 14.9 cm. Moderate intrahepatic bile duct dilatation. Gallbladder: Distended. No definite gallstones. Gallbladder wall is thickened and edematous measuring up to 4 mm. The technologist was unable to assess for a sonographic Brooks's sign due to the patient 's pain medication. CBD: 1.4 cm. Right kidney: Mild hydronephrosis. IMPRESSION: 1. Distended gallbladder with a thickened/edematous gallbladder wall. No definite gallstones. Finding s are nonspecific but could represent an acalculous acute cholecystitis. 2. Moderate intra and extrahepatic bile duct dilatation is again noted. This remains unchanged. Consi alexandra follow-up ERCP to exclude an occult obstructing lesion or stone. 3. Mild right hydronephrosis. ACT 112: Negative or not required by law. Electronically signed by: Jim Funes M.D. 05/19/2020 6:31 PM
[2020-05-19] MEDS ORDERED: D5W AND NSS 1,000 ML IV SCH (19:13)
[2020-05-19] MEDS ORDERED: ONDANSETRON INJ 2 MG/ML 2 ML VIAL IV PRN (19:13)
[2020-05-19] MEDS ORDERED: MoRPHine SULFATE 4 MG/ML 1 ML CARP\\VIAL IV PRN (19:13)
[2020-05-19] MEDS ORDERED: ACETAMINOPHEN 325 MG TAB PO PRN (19:13)
[2020-05-19] MEDS ORDERED: PANTOprazole 40 MG TAB PO SCH (21:00)
[2020-05-19 21:05] LABS: Appearance Urine Clear (Clear); Bacteria Urine Automated 1+ (Negative); Bilirubin Urine Negative (Negative); Blood Urine Trace (Negative); Cast Urine Automated 0 /lpf (0-5); Color Urine Yellow; Epithelial Cell Urine Auto 20-30 /lpf (0-5); Glucose Urine UA Negative (Negative); Ketones Urine Negative (Negative); Leukocyte Esterase Urine Negative (Negative); Nitrite Urine Positive (Negative); Protein Urine Trace (Negative); RBC Urine Automated 0-4 /hpf (0-4); Specific Gravity Urine > 1.045 (1.000-1.030); Urobilinogen Urine Negative (Negative); pH Urine 6.5 (4.5-7.5)
--- NOTE | 2020-05-19 21:49 | Communication Note ---
Date of Service: May 19, 2020 Attending note : troponin elevation noted 2.60 NSTEMI underlying severe coronary artery disease admitted earlier with sudden onset of severe epigastric pain with chest heaviness associated with diaphoresis , nausea/vomiting and dizzy spell CT abdomen/pelvis shows acute cholecystitis with dilated CBD pt was seen by Surgery team and by myself and Beryl HOLDER in ER pt is high risk for nayeli and post operative cardiac decompensation ( AL/CHF /Arrythmia ) given extensive CAD , multiple co-morbidities CT chest also reveals proximal abdominal aorta thrombus , severe calcified Coronaries , moderate right renal artery stenosis . EKG had no acute ishemic change pre op Cardiac eval and Anethesiology consult requested ECHO and cardiac markers ordered . Troponin significantly elevated to > 2.6 pt started on IV heparin wt based protocol MRCP shows possible distal CBD choledocholithiasis Discussed with insulation sprayer [facility] cardiology pt needs to be transferred to [place] for gall bladder procedure -possible cholecystoscopy /ERCP [facility] will be contacted cont IV heparin wt based protocol , IV metoprolol if [place] does not have a bed avaiable right away , pt need to be observed in ICU for close monitoring of hemodynamics ICU team updated Juli Abreu MD
[2020-05-19] MEDS ORDERED: cefOXitin 1,000 MG/50 ML BAG IV SCH (22:00)
[2020-05-19] MEDS ORDERED: HEPARIN IV BOLUS 4,000 UNITS in SYRINGE 0 ML IV ONE (22:00)
[2020-05-19] MEDS ORDERED: HEPARIN SODIUM/DEXTROSE 25,000 UNITS/500 ML BAG IV SCH (22:00)
[2020-05-19] MEDS ORDERED: PIPERACILL/TAZOBAC CONSULT ACTIVE PRN (22:16)
--- NOTE | 2020-05-19 22:45 | Discharge Summary ---
Date of Service May 19, 2020 Admission HPI Per Admitting Provider 85-year-old female with PMH HTN, CAD, osteoporosis, CKD stage III, and other problems listed below who presents the ED for evaluation of abdominal pain. Patient reports that around 1230, she developed epigastric pain. This pain seemed to radiate up into her chest causing some chest pressure. Patient took sublingual nitroglycerin without any resolution of her symptoms and then presented to the ED for further evaluation. Patient has associated nausea but denies any vomiting. No fevers or chills. Denies diarrhea. Has chronic exertional shortness of breath which is unchanged baseline. No lightheadedness, dizziness, diaphoresis, syncopal events. Reports she otherwise has been feeling well recently. No urinary symptoms. In the ED, abdomen CTA is showing evidence of acute cholecystitis and CBD dilatation. Blood pressure was elevated on arrival 202/100, patient received IV hydralazine with improvement in BP. She is otherwise hemodynamically stable, no leukocytosis. General surgery evaluated the patient in the ED. She was given IV cefoxitin, IV Dilaudid, IV morphine, IV Zofran, IVF. Principal Diagnosis nstemi acute cholecystitis Discharge Data Allergies Allergy/AdvReac Type Severity Reaction Status Date / Time adhesive Allergy Unknown RED, CANT Verified 05/19/20 16:26 TOLERATE PAPER TAPE nitroglycerin Allergy Unknown NITRO Verified 05/19/20 16:26 PATCH, ITHCY Consultations 05/19/20 16:44 ED Decision to Admit Stat 05/19/20 19:13 Consult Anesthesiology Routine Consult Cardiology Routine Consult Case Management - Discharge Planning Routine Consult Gastroenterology Routine Ordered Studies 05/19/20 14:13 CT angio abdomen w con Stat CT angio chest dissec wo/w con Stat 05/19/20 14:44 US gallbladder Stat 05/19/20 16:07 MR MRCP Urgent Hospital Course (1) NSTEMI (non-ST elevated myocardial infarction): Admitting Attending note : troponin elevation noted 2.60 NSTEMI underlying severe coronary artery disease admitted earlier with sudden onset of severe epigastric pain with chest heaviness associated with diaphoresis , nausea/vomiting and dizzy spell CT abdomen/pelvis shows acute cholecystitis with dilated CBD pt was seen by Surgery team and by myself and Beryl HODLER in ER pt is high risk for nayeli and post operative cardiac decompensation ( [place]/CHF /Arrythmia ) given extensive CAD , multiple co-morbidities CT chest also reveals proximal abdominal aorta thrombus , severe calcified Coronaries , moderate right renal artery stenosis . EKG had no acute ishemic change pre op Cardiac eval and Anethesiology consult requested ECHO and cardiac markers ordered . Troponin significantly elevated to > 2.6 pt started on IV heparin wt based protocol MRCP shows possible distal CBD choledocholithiasis Discussed with it service continuity supervisor [facility] cardiology pt needs to be transferred to [place] for gall bladder procedure -possible cholecystoscopy /ERCP [facility] will be contacted cont IV heparin wt based protocol , IV metoprolol if [place] does not have a bed avaiable right away , pt need to be observed in ICU for close monitoring of hemodynamics ICU team updated Juli Yang was called and was accepted in Transfer. (2) Acute cholecystitis: (3) CAD (coronary artery disease): Total Time Total Time Spent Total Time Spent (In Minutes): 45 minutes Discharge Plan Discharge Items Patient Disposition: Transfer Acute Care Hospital Reason For Visit: ACUTE CHOLECYSTITIS Discharge Diagnosis: acute cholecystitis nstemi Activity: As commented below Activity Comment: bed rest Non-emergency contact: Primary Care Provider Call non-emergency contact if: you have any medication questions and your symptoms worsen Follow-up/Referrals: Anita Levin MD [Primary Care Provider] - Diet: Nothing by Mouth Diet Comment: transferring to [place] Addtl Attending Provider Instructions: iv zosyn . Dosing as per pharmacy for acute cholecytitis iv heparin weight based protocol iv d5ns@80ml/hr Pending Studies at Discharge: No Stand-Alone Forms: My [facility] Skilled Items Patient informed of condition?: Yes DNR: No Discharge Level of Care: Other Communicable Disease: No Discharge Prognosis: Other Lines: Peripheral IV Urinary Catheter: No Medications and DC Order Prescriptions: Continued atorvastatin 80 mg Tablet 80 mg PO DAILY RF: 0 metoprolol succinate 50 mg Tablet Extended Release 24 Hr 25 mg PO DAILY RF: 0 aspirin [Aspir-81] 81 mg Tablet,Delayed Release (Dr/Ec) 81 mg PO DAILY RF: 0 acetaminophen [Tylenol Extra Strength] 500 mg Tablet 500 mg PO DIRECTED PRN (Reason: Fever Or Pain) RF: 0 isosorbide mononitrate 60 mg tablet extended release 24 hr 60 mg PO QAM RF: 0 lorazepam 0.5 mg Tablet 0.5 mg PO BID PRN (Reason: Anxiety) RF: 0 pantoprazole 40 mg tablet,delayed release (DR/EC) 40 mg PO BID RF: 0 nitroglycerin 400 mcg/spray [place],Non-Aerosol 400 mcg sublingual DIRECTED PRN (Reason: Chest Pain) RF: 0 oxybutynin chloride 5 mg tablet 5 mg PO DAILY RF: 0 lisinopril 2.5 mg Tablet 2.5 mg PO DAILY RF: 0 duloxetine 20 mg Capsule,Delayed Release(Dr/Ec) 40 mg PO DAILY RF: 0 calcium carbonate-vitamin D3 [Calcium 500 + D] 500 mg(1,250mg) -200 unit Tablet 2 tab PO DAILY RF: 0 diclofenac sodium 1 % Gel 2 g TOPICAL QID RF: 0 Prolia 60 mg/mL Syringe 60 mg SUBCUT DIRECTED RF: 0 Hydra Tears 1 drp OPB BID RF: 0 Mylanta Reg Strength 5 ml PO DIRECTED PRN (Reason: REFLUX SYMPTOMS) RF: 0 Discharge Orders: Discharge Order (Routine); Ordered 05/19/20 Ordered By: Abel Reid Admission Data Admit Date/Time: 05/19/20 17:29 Attending Provider: Clarita Abreu Admit Provider: Clarita Abreu Primary Care Provider: Anita Levin Other Providers: Clarita Abreu ; Jim Santizo ; Magno Smith ; Kevin Ordonez
[2020-05-19] MEDS ORDERED: PIPERACILLIN/TAZOBACTAM 3.375 GM in DEXTROSE 5% 100 ML IV SCH (23:00)
[2020-05-19 23:15] VITALS: BP 97/62; PULSE 73; TEMP 97.7; O2SAT 93
[2020-05-20] MEDS ORDERED: ASPIRIN 81 MG ECTAB PO SCH (09:00)
[2020-05-20] MEDS ORDERED: ISOSORBIDE MONO EXTENDED REL 60 MG TABCR PO SCH (09:00)
[2020-05-20] MEDS ORDERED: OXYBUTYNIN CHLORIDE 5 MG TAB PO SCH (09:00)
[2020-05-20] MEDS ORDERED: METOPROLOL SUCC 25MG EXT REL TAB PO SCH (09:00)
[2020-05-20] MEDS ORDERED: DULOXETINE HCL 20 MG CAP PO SCH (09:00)
[2020-05-20] MEDS ORDERED: ATORVASTATIN 40 MG TAB PO SCH (09:00)
== END 2020-05-20 00:55 | disposition short-term general hospital (02) | DRG 444 ==
LOC: ED 13:53 → 2S 17:29